=== PATIENT | male | born 1955 | race Caucasian/White ===

== ENCOUNTER 2025-05-18 20:12 | Inpatient (IN) | payer OTHER, BC, MEDICARE, SELFPAY ==
--- NOTE | ~2025-05-18 | XR_ITS ---
XR chest 1V portable 05/19/2025 05:25 Indication: Preop Procedure: AP portable chest Comparison: No prior studies for comparison. Findings: Heart size normal. There are bilateral interstitial infiltrates which may reflect mild edema, atypical pneumonia or chronic interstitial lung disease. Small left pleural effusion. No pneumothorax. There are degenerative changes of the left acromioclavicular joint. Impression: 1: Bilateral interstitial infiltrates. Differential diagnosis includes pulmonary edema, atypical pneumonia and chronic interstitial lung disease. Reviewed, dictated and finalized at location O. Impression: 1: Bilateral interstitial infiltrates. Differential diagnosis includes pulmonar y edema, atypical pneumonia and chronic interstitial lung disease.
--- NOTE | ~2025-05-18 | XR_ITS ---
XR hip LT 2V w AP pelvis 05/19/2025 11:00 Indication: Status post internal fixation of left femoral intertrochanteric fracture Procedure: 2 views left hip Comparison: 05/18/2025 Findings: Status post internal fixation of intertrochanteric fracture with dynamic compression screw and intramedullary obed. There is a single interlocking screw distally. Fracture fragments in anatomic alignment. Impression: 1: Anatomic alignment of left femoral intertrochanteric fracture status post internal fixation. Reviewed, dictated and finalized at location O. Impression: 1: Anatomic alignment of left femoral intertrochanteric fracture status post in ternal fixation.
--- NOTE | ~2025-05-18 | XR_ITS ---
XR hip LT 2V w AP pelvis 05/18/2025 20:43 Indication: Left hip pain after fall Procedure: AP pelvis and 2 views left hip Comparison: No prior studies for comparison. Findings: There is a left femoral intertrochanteric fracture without significant angulation. Pelvic rings intact. Sacral foramen are symmetric. Impression: 1: Left femoral intertrochanteric fracture. Reviewed, dictated and finalized at location O. Impression: 1: Left femoral intertrochanteric fracture.
--- NOTE | ~2025-05-18 | XR_ITS ---
XR fluoroscopy no charge Indication: Intraoperative fixation of left hip fracture TECHNIQUE: Fluoroscopy used during intraoperative fixation of left hip fracture. performed by [Flaco Guzman MD] on 05/19/2025. 1 minute for 80 seconds fluoroscopy with 4 fluoroscopic images captured. FINDINGS: Correlate with procedure note. IMPRESSION: Fluoroscopy used during intraoperative fixation of left hip fracture. Reviewed, dictated and finalized at location O. IMPRESSION: Fluoroscopy used during intraoperative fixation of left hip fractur e.
[2025-05-18 20:14] VITALS: BP 172/82; PULSE 81; RESP 18; TEMP 36.3; O2SAT 94
--- NOTE | 2025-05-18 20:46 | ED_ITS ---
HPI - Fall General Chief Complaint: Fall Stated Complaint: fall. hip pain Time Seen by Provider: 05/18/25 20:18 History of Present Illness HPI Narrative: Patient is a 69-year-old male who presents to the emergency department this evening status post a mechanical fall. 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 Patient did catch himself on his elbow, denies hitting his head and denies any loss of consciousness. Patient states that he is not in any pain when he is not moving but when he tries to move his left lower extremity at the hip joint the movement does elicit pain. No deformity or rotation noted to the left lower extremity. Admits that he is on a blood thinner present is unsure of which 1. States that it was Xarelto but it was recently changed to something else. Review of Systems 2 Review of Systems: All systems are reviewed and are negative unless stated otherwise in the HPI. Exam 2 Narrative: General: Alert, awake, afebrile, in no acute distress. HEENT: PERRL, no rhinorrhea, no post nasal drip, oropharynx clear. Neck: Trachea midline, no JVD, no lymphadenopathy. Cardiovascular: Regular rate and rhythm, no murmurs, rubs or gallops, no peripheral edema. Respiratory: Clear to auscultation bilaterally, no tachypnea, no wheezing, no rhonchi, no rubs, no respiratory distress. Abdomen: Soft, nontender, nondistended, no rebound, no guarding, no peritoneal signs. Musculoskeletal: No joint swelling or deformity, normal muscle tone, decreased range of motion at the left hip joint secondary to pain, no deformity or rotation noted to the left lower extremity. Skin: No rashes or petechia, no signs of infection. Psychiatric: Alert and oriented, normal behavior and judgment for situation. Neurological: Alert and oriented to person, place, and time. Follows all commands. No focal deficits, speech is clear and fluent. Course Vital Signs Vital signs: Vital Signs Temperature 97.3 F L 05/18/25 20:14 Pulse Rate 81 05/18/25 20:14 Respiratory Rate 18 05/18/25 20:14 Blood Pressure 172/82 H 05/18/25 20:14 Pulse Oximetry 94 05/18/25 20:14 Oxygen Delivery Room Air 05/18/25 20:14 Temperature 97.3 F L 05/18/25 20:14 Pulse Rate 81 05/18/25 20:14 Respiratory Rate 18 05/18/25 20:14 Blood Pressure 172/82 H 05/18/25 20:14 Pulse Oximetry 94 05/18/25 20:14 Oxygen Delivery Room Air 05/18/25 20:14 MDM - Fall MDM Narrative Medical decision making narrative: The patient was evaluated by myself in the emergency department. History is obtained from patient who is an independent historian and physical exam was performed. External medical records were reviewed at this time. IV was established and pertinent tests were ordered. Patient was administered 2 mg of IV morphine and 4 mg IV Zofran. EKG was obtained which revealed sinus rhythm rate of 82 beats per minute, evidence of acute ischemia. EKG was independently interpreted by me and is currently pending official cardiology read. Laboratory results obtained revealing a creatinine of 2.13, BUN of 27 otherwise unremarkable. No previous kidney function available for comparison. Imaging studies obtained included AP pelvis with left hip x-rays which was independently interpreted by me revealing a left IT hip fracture, which is pending final radiology interpretation. At this time patient was informed of these findings at bedside. Case was discussed with the on-call orthopedic surgeon Dr. Guzman at 2105 any agreed to evaluate the patient. Case was discussed with the on-call hospitalist JOHN Chilel who accepts admisison. Differential diagnosis considerations include fracture, dislocation, musculoskeletal strain. Comorbidities impacting this visit include none. I have evaluated and discussed social determinants of health with the patient that could potentially impact subsequent diagnosis and treatment plans. On repeat assessment of the patient, reevaluation revealed that the patient is doing well and is in no acute distress. Patient symptoms have improved since he arrived to our emergency department. Repeat vital signs were all reviewed and noted to be stable. Differential diagnosis and treatment plan were discussed with the patient at bedside. Patient agrees with discussion and after shared medical decision making agrees with admission. All questions were answered to the patient's satisfaction. Lab Data 05/18/25 21:13 05/18/25 21:13 Labs: Lab Results 05/18/25 Range/Units 21:13 WBC 6.5 (4.5-10.0) K/mm3 RBC 3.55 L (4.6-6.20) M/mm3 Hgb 11.7 L (14.0-18.0) g/dL Hct 34.4 L (42.0-52.0) % MCV 96.9 (80-100) fl MCH 33.0 (26-34) pg MCHC 34.0 (32-36) g/dl RDW 12.1 (11.5-14.5) % Plt Count 156 (150-375) k/mm3 MPV 9.1 (7.4-10.4) fl Immature Gran % (Auto) 0.6 H (0-0.5) % Neut % (Auto) 79.0 H (45.5-73.1) % Lymph % (Auto) 11.0 L (18.3-44.2) % [place] % (Auto) 7.4 (2.6-8.5) % Eos % (Auto) 1.7 (0-4.4) % Baso % (Auto) 0.3 (0.2-1.2) % Lymph # (Auto) 0.72 L (0.9-3.2) K/mm3 [place] # (Auto) 0.5 (0.1-0.6) K/mm3 Eos # (Auto) 0.1 (0-0.3) K/mm3 Baso # (Auto) 0.0 (0.0-0.1) K/mm3 Abs Immat Gran (auto) 0.04 H (0.00-0.031) K/mm3 Absolute Neuts (auto) 5.2 (1.3-6.7) K/mm3 Absolute Nucleated RBC 0.000 (0.0-0.012) K/mm3 Nucleated RBC % 0.0 (0.0-0.2) % Sodium 138 (137-145) mmol/L Potassium 4.4 (3.4-5.0) mmol/L Chloride 108 H (98-107) mmol/L Carbon Dioxide 22 (22-30) mmol/L Anion Gap 8 (4-12) mmol/L BUN 27 H (9-20) mg/dL Creatinine 2.13 H (0.7-1.3) mg/dL Estim Creat Clear Calc 33 ml/min Estimated GFR 31 L (59 - ) Glucose 108 (65-110) mg/dL Calcium 9.9 (8.4-10.2) mg/dL Magnesium 2.0 (1.6-2.3) mg/dL Total Bilirubin 0.6 (0.2-1.3) mg/dL AST 30 (17-59) U/L ALT 26 (6-50) U/L Alkaline Phosphatase 95 (38-126) U/L Total Protein 6.7 (6.3-8.2) g/dL Albumin 4.1 (3.5-5.1) g/dL Blood Type Pending Antibody Screen Pending Discharge Plan Discharge Clinical Impression: Fracture of hip, left, closed, Closed intertrochanteric fracture of left femur, Fall Patient Disposition: Still a Patient Condition: Stable Patient Language: Luxembour[place] Follow-up/Referrals: PHYSICIAN NOT ON STAFF,NONSTAFF [Primary Care Provider] Time of Disposition: 21:41
--- NOTE | 2025-05-18 21:00 | ECG_ITS ---
Test Date: 2025-05-18 21:12:31 Measurements Intervals [place] Rate: 82 P: 46 WI: 174 QRS: 31 QRSD: 98 T: 101 QT: 364 QTc: 426 Interpretive Statements SINUS RHYTHM INFERIOR INFARCT, AGE INDETERMINATE BORDERLINE ST ABNORMALITY- LAT/HIGH LAT LEADS BASELINE ARTIFACT- I, II, III AVR, AVL, AVF, V1-V6 ABNORMAL ECG No previous ECG available for comparison Electronically Signed On 05-19-2025 07:32:58 CDT by Keanu Zaidi D.O.
[2025-05-18] MEDS: ONDANSETRON INJ 4 MG/2 ML VIAL IV PUSH (21:04)
[2025-05-18] MEDS: MORPHINE SULFATE (*CRX) 2 MG/ML INJ IV PUSH (21:04)
[2025-05-18 21:20] LABS: Hematocrit 34.4 % (42.0-52.0); Hemoglobin 11.7 g/dL (14.0-18.0); Immature Granulocyte Percent A 0.6 % (0-0.5); Lymphocytes Absolute Auto 0.72 K/mm3 (0.9-3.2); Mean Corpuscular HGB Conc 34.0 g/dl (32-36); Mean Corpuscular Hemoglobin 33.0 pg (26-34); Mean Corpuscular Volume 96.9 fl (80-100); Nucleated Red Blood Cells Absolute Auto 0.000 K/mm3 (0.0-0.012); Nucleated Red Blood Cells Perc 0.0 % (0.0-0.2); Platelet Count Result 156 k/mm3 (150-375); Red Blood Count 3.55 M/mm3 (4.6-6.20); White Blood Count 6.5 K/mm3 (4.5-10.0)
[2025-05-18 21:31] LABS: Alanine Aminotransferase 26 U/L (6-50); Albumin Level 4.1 g/dL (3.5-5.1); Alkaline Phosphatase 95 U/L (38-126); Anion Gap 8 mmol/L (4-12); Aspartate Amino Transferase 30 U/L (17-59); Bilirubin,Total 0.6 mg/dL (0.2-1.3); Blood Urea Nitrogen 27 mg/dL (9-20); Calcium 9.9 mg/dL (8.4-10.2); Carbon Dioxide 22 mmol/L (22-30); Chloride 108 mmol/L (98-107); Estimated CRCL calculation 33 ml/min; Estimated Glomerular Filt Rate 31; Glucose 108 mg/dL (65-110); Magnesium 2.0 mg/dL (1.6-2.3); Potassium 4.4 mmol/L (3.4-5.0); Sodium 138 mmol/L (137-145); Total Protein 6.7 g/dL (6.3-8.2)
--- OUTSIDE RECORDS SUMMARY | 2025-05-18 21:35 | XMS_ITS | Clinical Summary ---
Author Organization [facility] Address [address] [place] [address] Care Team Providers Care Street Sweeper Name Role Phone Kandy Cho RN Unavailable Unavailable Shaji Brumfield MD Unavailable Shaji Brumfield MD Unavailable Tariq Vega MD Primary Care Provider [phone] Source Comments [facility],non-owned Affiliates and Associated Physician Practices is amultiple site organization consisting of ambulatory clinics and hospital sitesin [place], [place] and [place]. This disclosure is being madepursuant to the Care Everywhere program and may not contain all information available regarding this patient. Last updated 18.[facility] Allergies No known active allergies Medications * Be aware that medications may not be up to date on this document. Alwaysverify current medications with the patient. albuterol HFA (Proventil; Ventolin; Proair) 108 (90 Base) MCG/ACT inhaler Inhale 2 (two) puffs by mouth every 6 hours as needed 59.5 g 3 05/24/2024 Active multivitamin daily tablet Take 1 (one) tablet by mouth daily with food Active [place]-3 Fatty Acids (fish oil) 500 MG capsule Take 500 (five hundred) mg by mouth 2 times daily Active losartan (Cozaar) 100 MG tablet TAKE 1 TABLET BY MOUTH EVERY DAY 90 tablet 3 07/05/2024 Active Aspirin Low Dose 81 MG chew tablet TAKE 1 TABLET BY MOUTH EVERY DAY 90 tablet 3 07/17/2024 Active atorvastatin (Lipitor) 80 MG tablet TAKE 1 TABLET BY MOUTH EVERY DAY 90 tablet 3 10/01/2024 Active buPROPion SR 12hr (Wellbutrin-SR) 150 MG tabletIndication s:Personal history of nicotine dependence TAKE 1 (ONE) TABLET BY MOUTH 2 TIMES DAILY 180 tablet 3 12/27/2024 Active fluticasone-umec lidin-vilant (Trelegy Ellipta) 200-62.5-25 MCG/ACT inhalerIndicatio ns:Centrilobular emphysema (HCC) Inhale 1 (one) puff by mouth once daily 90 Each 4 12/28/2024 Active tadalafil (Cialis) 20 MG tabletIndication s:Erectile dysfunction, unspecified erectile dysfunction type TAKE 1/2 (ONE-HALF) TO 1 TABLET BY MOUTH ONCE DAILY NEEDED 6 tablet 4 02/04/2025 Active famotidine (Pepcid) 40 MG tabletIndication s:Gastroesophage al reflux disease without esophagitis TAKE 1 (ONE) TABLET BY MOUTH 2 TIMES DAILY 180 tablet 3 03/01/2025 Active carvedilol (Coreg) 25 MG tablet Take 1 (one) tablet by mouth 2 times daily with morning and evening meal 180 tablet 3 03/08/2025 Active rivaroxaban (Xarelto) 2.5 MG TABS tablet Take 1 (one) tablet by mouth 2 times daily 180 tablet 3 03/11/2025 Active Active Problems Problem Noted Date Diagnosed Date Stage 3b chronic kidney disease (CKD) 12/28/2024 Coronary artery disease of n ative artery of [place] heart with stable angina pectoris 06/26/2024 Essential hypertension 04/29/2023 HFrEF (heart failure with reduced ejection fract ion) 04/21/2023 Preop examination 11/18/2022 Mixed hyperlipidemia 10/12/2021 Pulmonary emphysema 05/26/2021 Assessment & Plan (05/27/2021 12:51 PM CDT): On home spiriva, albuterol PRN. On Wellbutrin for smoking cessation. States he quit smoking for the surgery, but unfortunately restarted again recently. - Continue spiriva, rescue inhaler as needed - Hold welbutrin for now Assessment & Plan (05/26/2021 5:35 PM CDT): On home spiriva, albuterol PRN. On Wellbutrin for smoking cessation. States he quit smoking for the surgery, but unfortunately restarted again recently. - Continue spiriva, rescue inhaler as needed - Hold welbutrin for now PAD (peripheral artery disease) 05/26/2021 Assessment & Plan (05/27/2021 12:51 PM CDT): PAD s/p illiac revascularization and stent placement -Hold statin, aspirin for now Assessment & Plan (05/26/2021 5:36 PM CDT): PAD s/p illiac revascularization and stent placement -Hold statin, aspirin for now Abdominal pain, right upper quadrant 05/25/2021 Assessment & Plan (05/27/2021 12:50 PM CDT): Patient is s/p partial cholecystectomy on 02/2021. Presented to the ED due to concern for right sided abdominal pain. TAUC CT A/P read with findings concerning for ruptured gallbladder, intraperitoneal free air. Differential broad including GERD, peptic ulcer disease, bile leak, recurrent acute cholecystitis. - Vitals q4h - NPO, D5 LR @125 mls/hr, zosyn, protonix - Surgery consulted - HIDA today, possible ERCP to follow Assessment & Plan (05/26/2021 5:33 PM CDT): Patient is s/p partial cholecystectomy on 02/2021. Presented to the ED due to concern for right sided abdominal pain. TAUC CT A/P read with findings concerning for ruptured gallbladder, intraperitoneal free air. Differential broad including GERD, peptic ulcer disease, bile leak, recurrent acute cholecystitis. - Vitals q4h - NPO, LR @125 mls/hr, zosyn, protonix - Surgery consulted - HIDA tomorrow AM, possible ERCP to follow S/P cholecystectomy 03/03/2021 Assessment & Plan (03/06/2021 11:13 AM CDT): -Followed by to Dr. 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 States when he is feeling well he can smoke around 3 packs a day. States currently he smokes 2-3 cigarettes a day. He states he was started on Wellbutrin to help him quit smoking and admits to compliance with the medication. Plan: -Hold nicotine patches due to surgery -Continue Wellbutrin Assessment & Plan (03/03/2021 11:01 PM CDT): Patient with a long history of tobacco use. States when he is feeling well he can smoke around 3 packs a day. States currently he smokes 2-3 cigarettes a day. He states he was started on Wellbutrin to help him quit smoking and admits to compliance with the medication. Plan: -Hold nicotine patches due to surgery -Continue Wellbutrin Stage 3a chronic kidney disease 10/20/2020 Low TSH level 11/28/2019 Gastroesophageal reflux disease without esophagi tis 03/12/2015 Bloating 07/18/2014 Bronchitis, chronic 07/19/2013 Resolved Problems Problem Noted Date Diagnosed Date Resolved Date Constipation 03/06/2021 04/03/2021 Assessment & Plan (03/06/2021 10:56 AM CDT): Pt s/p open cholecystectomy. Bowel sounds present. -continue miralax -continue senna-s -dulcolax suppository Sepsis 03/03/2021 03/05/2021 Assessment & Plan (03/03/2021 10:49 PM CDT): Patient meeting sepsis criteria in ED: tachycardic (111-113) with leukocytosis (WBC 14.4) and source of infection w/ signs of cholecystitis on CT scan. Lactic acid normal (1.9). Patient started on IV antibiotics and provided 1L bolus in ED. Plan: -Telemetry -LR @ 100mL/hr -Continue IV antibiotics (Cefepime and Flagyl) -F/u blood cultures -Dr. Lind planning for surgery in the AM to remove nidus of infection DIOMEDES (acute kidney injury) 03/03/2021 Assessment & Plan (03/03/2021 10:53 PM CDT): Patient w/ elevated creatinine on admission, (Cr 1.65). Baseline Creatinine 1.3- 1.4. Likely 2/2 to dehydration due to decreased PO intake and sepsis. Plan: -LR @ 100 mL/hr -Recheck creatinine in AM Encounters Date Type Department Care Team Description 05/07/2025 9:30 AM CDT Office Visit [facility] [address] [place] [phone] Jermain Iyer MD PAD (peripheral artery disease) (Primary Dx); HFrEF (heart failure with reduced ejection fraction) (HCC); Essential hypertension; Coronary artery disease of [place] artery of [place] heart with stable angina pectoris; Mixed hyperlipidemia 05/07/2025 Travel 03/08/2025 Refill [facility] [address] [place] [address] [address] [place] [address] Jermain Iyer MD MEDICATION REFILL 03/08/2025 Refill [facility] [address] [place] [address] Jermain Iyer MD MEDICATION REFILL 03/01/2025 Refill [facility] [address] [facility] [place] [place] [address] Tariq Vega MD Refill Request 02/22/2025 Refill [facility] [address] [place] [address] [address] [place] [address] Jermain Iyer MD Med Question from Last 3 Months Immunizations Immunization Administration Dates Next Due Covid Moderna primary monova lent 12+ yr 0.5mL 09/24/2021,01/26/2021,12/29/2020 INFLUENZA VACCINE 08/23/2018 INFLUENZA VACCINE, CELL CULT URE, QUADR. (FLUCELVAX QUADRIVALENT; 6MO+) (CCIIV4) 06/10/2021 INFLUENZA VACCINE, CELL CULT URE, QUADR. (FLUCELVAX QUADRIVALENT; 6MO+), 0.5 ML (CCIIV4) 07/05/2019 INFLUENZA VACCINE, HIGH-DOSE , QUADR. (FLUZONE HIGH-DOSE QUADRIVALENT; 65Y+), 0.7 ML (HD-IIV4) 07/08/2024 INFLUENZA VACCINE, HIGH-DOSE , TRIV. (FLUZONE HIGH-DOSE TRIVALENT; 65Y+) (HD-IIV3) 07/08/2024 INFLUENZA VACCINE, QUADR. (F LUZONE; FLULAVAL; FLUARIX; AFLURIA QUADRIVALENT; 6MO+), 0.5 ML (IIV4) 07/22/2022,08/23/2018,06/30/2016 INFLUENZA VACCINE, TRIV. (FL UZONE; FLULAVAL; FLUARIX; AFLURIA TRIVALENT; 6MO+), 0.5 ML (IIV3) 12/25/2014 MODERNA SARS-COV-2 COVID-19 VACCINE 0.25ML 05/12 PNEUMOCOCCAL PCV20 CONJ VAC IM 10/13/2022 PNEUMOCOCCAL PPSV23 12/25/2014 TDAP (7yrs+) 10/16/2020 Zoster Hzv Vacc Recombinant Inj Im 02/26/2021, iNFLUENZA VACCINE, RECOM-AARON, QUADR. (FLUBLOCK QUADRIVALENT; 18Y+) (RIV4) 07/12/2020 Family History Medical History Relation Name Comments Hyperlipidemia Brother Cancer Mother breast, colon Hyperlipidemia Sister 1 Hyperlipidemia Sister 2 Hyperlipidemia Sister 3 Relation Name Status Comments Brother Alive Father Mother Sister 1 Alive Sister 2 Alive Sister 3 Alive Social History Tobacco Use Types Packs/Day Years Used Date Smoking Tobacco: Former Cigarettes 3 47 1 09/26/1975 - 07/27/2023 Smokeless Tobacco: Never Tobacco Cessation:Counseling Given: Not Answered Comments:Now 1.5 packs per day 10/16/20 LUNG SCREENING CSD DOCUMENTATION Alcohol Use Standard Drinks/Week Comments Not Currently 0 (1 standard drink = 0.6 oz pur e alcohol) No alcohol in over a year PHQ-2 Answer Date Recorded Patient Health Questionnaire-2 Score 0 12/28/2024 Sex and Gender Information Value Date Recorded Sex Assigned at Not on file Legal Sex 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 Gender Identity Not on file Sexual Orientation Not on file Last Filed Vital Signs Vital Sign Reading Time Taken Comments Blood Pressure 138/74 05/07/2025 9:07 AM CDT Pulse 74 05/07/2025 9:07 AM CDT Temperature 37 C (98.6 F) 05/07/2025 9:07 AM CDT Respiratory Rate 17 07/02/2024 3:26 PM CDT Oxygen Saturation 98% 12/28/2024 10:44 AM CDT Inhaled Oxygen Concentration 21% 05/27/2021 1 2:07 PM CDT Weight 84.8 kg (187 lb) 05/07/2025 9:07 AM CDT Height 177.8 cm (5' 10) 12/28/2024 10:44 AM CDT Body Mass Index 26.83 12/28/2024 10:44 AM CDT Plan of Treatment Upcoming Encounters Date Type Department Care Team (Late st Contact Info) Description 07/23/2025 9:40 AM CDT Office Visit [facility] [address] [facility] [place] [address] Tariq Vega MD [address] [facility] [place] [id number] 11/12/2025 9:30 AM 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 Office Visit [facility] [address] [place] [address] [address] [place] [address] Jermain Iyer MD [address] [place] [phone] Health Maintenance Due Date Last Done Comments COLOGUARD (AGES 45-75) - COLON CA SCREENING 1955 CT COLONOGRAPHY - COLON CA SCREENING 1955 FIT - COLON CA SCREENING 1955 FLEX SIG - COLON CA SCREENING 1955 Respiratory Syncytial Virus (RSV) Vaccine Pt: or over 60 yrs (1 - Risk 60-74 years 1-dose series) 2017 COVID-19 VACCINE ( season) 2024 05/12/2022, 09/24/2021, 01/26/2021, Additional history exists INFLUENZA VACCINE (#1) 2025 , 07/08/2024, 07/22/2022, Additional history exists LUNG CANCER SCREENING 01/14/2026 01/14/2025 , 11/16/2023, 10/28/2022, Additional history exists COLON MONITORING 07/02/2027 07/02/2024, 03/2024, 07/02/2024, Additional history exists Colorectal Cancer Screening 07/02/2027 SCREENING FOR DIABETES 01/19/2028 , 05/24/2024, 11/24/2023, Additional history exists DTAP/TDAP/TD VACCINES (2 - Td or Tdap) 10/16/2030 10/16/2020 COLONOSCOPY - COLON CA SCREENING 07/02/2034 07/02/2024, 07/02/2024, 07/02/2024, Additional history exists HEPATITIS C SCREENING Completed 10/16/2020 ZOSTER VACCINE Completed 02/26/2021, 12/03/2020 AAA SCREENING Completed 10/27/2021 PNEUMOCOCCAL VACCINE 50+ Completed 10/13/2022, 04/0 09/2014 DEPRESSION SCREENING Completed 12/28/2024, 11/02/2023, 10/13/2022, Additional history exists HEPATITIS B VACCINE Aged Out No longe r eligible based on patient's age to complete this topic HIB VACCINE Aged Out No longer eligi ble based on patient's age to complete this topic HPV VACCINE Aged Out No longer eligi ble based on patient's age to complete this topic MENINGOCOCCAL (Group B) VACCINE SHARED DECISION-MAKING Aged Out No longer eligible based on patient's age to complete this topic MENINGOCOCCAL GROUPS A/C/Y/W VACCINE Aged Out No longer eligible based on patient's age to complete this topic Goals Goal Patient Goal Type Associated Problems Recent Progress Patient-Stated? Author Quit smoking / using tobacco Lifestyle Not on track(06/30/20 8:18 AM CDT) Irlanda García MA Medical Devices Implanted Type Area Province Archivist Device Identifier Shelf Expiration Date Model / Serial / Lot Grfer Vasc Str Std Eptfe Ring 6mm X 45cm Implanted:Qty: 1 on 12/23/2014 by Lali Diaz MD at [facility] [employer] 06/25/2019 [id number] / / [id number] Protege Gps Stent Implanted:Qty: 1 on 12/23/2014 by Lali Diaz MD at [facility] 09/10/2016 [id number] / / Procedures Procedure Name Priority Date/Time Associated Diagnosis Comments COMPREHENSIVE METABOLIC PANEL Routine 01/18/2025 10:45 AM CDT Essential hypertension CT LUNG SCREEN LOW DOSE Routine 01/14/2025 8:02 AM CDT Tobacco use disorder, severe, in sustained remission Personal history of nicotine dependence ENDOSCOPY, COLON, SCREENING Routine 07/02/2024 2:19 PM CDT Screening for colon cancer VAS AAA SCREENING Routine 10/27/2021 9:0 6 AM 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 PAD (peripheral artery disease) HEPATITIS C ANTIBODY W RFLX PCR Routine 10/16/2020 2:58 PM 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 Encounter for hepatitis C screening test for low risk patient from Last 3 Months or Most Recently Relevant to Health Maintenance Results * (ABNORMAL) COMPREHENSIVE METABOLIC PANEL (01/18/2025 10:45 AM CDT) Glucose 94 70 - 99 mg/dL [facility] INSURANCE BILL BUN 23 7 - 26 mg/dL [facility] INSURANCE BILL Creatinine 1.85(H) 0.72 - 1.25 mg/dL [facility] INSURANCE BILL eGFR by CKD-EPI 39(L) >=90 mL/min/1.7 3 m2 [facility] INSURANCE BILL Sodium 139 136 - 145 mmol/L [facility] INSURANCE BILL Potassium 5.0 3.5 - 5.1 mmol/L [facility] INSURANCE BILL Chloride 110(H) 98 - 107 mmol/L [facility] INSURANCE BILL CO2 22 22 - 29 mmol/L [facility] INSURANCE BILL Calcium 9.2 8.4 - 10.4 mg/dL [facility] INSURANCE BILL Protein Total 6.5 6.4 - 8.3 gm/dL [facility] INSURANCE BILL Albumin 4.0 3.4 - 5.0 gm/dL [facility] INSURANCE BILL Bilirubin Total 0.7 0.2 - 1.2 mg/dL [facility] INSURANCE BILL Alkaline Phosphatase 106 40 - 150 U/L [facility] INSURANCE BILL AST 26 10 - 48 U/L [facility] INSURANCE BILL ALT 39 6 - 57 U/L [facility] INSURANCE BILL Blood BLOOD SPECIMEN / Unknown 01/18/2025 10:45 AM CDT 01/18/2025 Narrative [facility] INSURANCE BILL - 01/18/2025 5:10 PM CDT Performed at: [address] [place] [id number] Tube Test Technician: Aba Rausch Dr, Phone: [phone] us Tariq Vega MD LAB - CHEMISTRY ORDERABLES Fin al Result [facility] INSURANCE BILL [address] [place] [address] * CT Lung Screen Low Dose (01/14/2025 8:02 AM CDT) Anatomical Region Laterality Modality Chest Computed Tomogra phy 01/14/2025 11:3 6 AM CDT Narrative 01/14/2025 11:42 AM CDT PROCEDURE: CT LUNG SCREEN LOW DOSE DATE/TIME OF EXAM: 01/14/2025 8:05 AM CLINICAL INFORMATION: None relevant/not provided if blank. Indication: F17.201: Nicotine dependence, unspecified, in remission Z87.891: Personal history of nicotine dependence Additional History: COMPARISON: Most recently 11/16/2023 TECHNIQUE: CT of the chest was performed without intravenous contrast utilizing low dose protocol. CT dose reduction technique was used, including Automated Exposure Control. FINDINGS: LUNGS: Symmetric biapical scarring. Mild to moderate centrilobular emphysema. Atelectasis in the lung bases most pronounced dependently which limits evaluation of the involved areas. No new or increasing suspicious nodules. HEART/OTHER VESSELS: Thoracic aorta is moderately atherosclerotic but normal in caliber. Qualitatively severe coronary atherosclerotic calcification. MEDIASTINUM/CHRISTIN: No enlarged lymph nodes. CHEST WALL/LOWER NECK: Indeterminate hypoattenuating 11 mm left thyroid nodule. Unchanged cortical thickening and coarsened trabecula with mild expansion of the right posterior seventh rib, suspicious for Paget's disease. UPPER ABDOMEN: Gallbladder is surgically absent. Probable small left renal cysts. Proximal duodenal diverticulum. ASSESSMENT: Lung-RADS 1: Negative. No nodules or definitely benign nodules noted. Possible Paget's disease involving the posterior right seventh rib. RECOMMENDATION: Follow up LDCT in 1 year. ACR Lung-RADS Category/Recommendations: 0: Need prior comparisons or additional images 1: Negative: 12 month follow up LDCT (Low Dose CT) 2: Benign Appearin month follow up LDCT 3: Probably Benign: 6 month follow up LDCT 4A: Suspicious: 3 month follow up LDCT (or immediate PET if >7mm solid component) 4B: Suspicious: Immediate Chest CT or PET if >7mm solid component 4X: Cat 3 or 4A nodules with additional suspicious findings Modifier-S: Significant NON-lung cancer findings Modifier-C: Prior treated Lung Cancer. For details of the ACR Lung-RADS program, categories and recommendations: 1) https://www.acr.org/Quality-Safety/Resources/LungRADS 2) Internet search: Lung-RADS Lung Cancer Screening 3) Contact [facility] thoracic nurse coordinator ([phone]) > Interpreting Provider: Hira Navarro MD on 01/14/2025 11:42 AM Procedure Note Hira Navarro MD - 01/14/2025 PROCEDURE: CT LUNG SCREEN LOW DOSE DATE/TIME OF EXAM: 01/14/2025 8:05 AM CLINICAL INFORMATION: None relevant/not provided if blank. Indication: F17.201: Nicotine dependence, unspecified, in remission Z87.891: Personal history of nicotine dependence Additional History: COMPARISON: Most recently 11/16/2023 TECHNIQUE: CT of the chest was performed without intravenous contrast utilizing low dose protocol. CT dose reduction technique was used, including Automated ExposureControl. FINDINGS: LUNGS: Symmetric biapical scarring. Mild to moderate centrilobular emphysema. Atelectasis in the lung bases most pronounced dependentlywhich limits evaluation of the involved areas. No new or increasing suspicious nodules. HEART/OTHER VESSELS: Thoracic aorta is moderately atherosclerotic but normal in caliber. Qualitatively severe coronary atherosclerotic calcification. MEDIASTINUM/CHRISTIN: No enlarged lymph nodes. CHEST WALL/LOWER NECK: Indeterminate hypoattenuating 11 mm left thyroid nodule. Unchanged cortical thickening and coarsened trabecula with mild expansion of the right posterior seventh rib, suspicious for Paget's disease. UPPER ABDOMEN: Gallbladder is surgically absent. Probable small leftrenal cysts. Proximal duodenal diverticulum. ASSESSMENT: Lung-RADS 1: Negative. No nodules or definitely benign nodules noted. Possible Paget's disease involving the posterior right seventh rib. RECOMMENDATION: Follow up LDCT in 1 year. ACR Lung-RADS Category/Recommendations: 0: Need prior comparisons or additional images 1: Negative: 12 month follow up LDCT (Low Dose CT) 2: Benign Appearin month follow up LDCT 3: Probably Benign: 6 month follow up LDCT 4A: Suspicious: 3 month follow up LDCT (or immediate PET if >7mm solid component) 4B: Suspicious: Immediate Chest CT or PET if >7mm solid component 4X: Cat 3 or 4A nodules with additional suspicious findings Modifier-S: Significant NON-lung cancer findings Modifier-C: Prior treated Lung Cancer. For details of the ACR Lung-RADS program, categories andrecommendations: 1) https://www.acr.org/Quality-Safety/Resources/LungRADS 2) Internet search: Lung-RADS Lung Cancer Screening 3) Contact [facility] thoracic nurse coordinator ([phone]) > Interpreting Provider: Hira Navarro MD on 01/14/2025 11:42 AM Tariq Vega MD CT ORDERABLES Final Result * Endoscopy, Colon, Screening (07/02/2024 2:19 PM CDT) Report Endoscopy POC _ Patient Name: Leighton Yates Procedure Date: 07/02/2024 2:19 PM Date of : 1955 Admit Type: Outpatient Age: 68 Gender: Male Ethnicity: Not or Race: White Attending MD: Oswaldo Jain MD, [id number] _ Procedure: Colonoscopy Indications: Screening for colorectal malignant neoplasm Providers: Oswaldo Jain MD (Doctor), Katherin Barragan RN, Tori Garcia, Local Driver Referring MD: Tariq Vega MD (Referring MD) Medicines: Monitored Anesthesia Care Complications: No immediate complications. _ Estimated Blood Loss: Estimated blood loss: none. Procedure: Pre-Anesthesia Assessment: - Prior to the procedure, a History and Physical was performed, and patient medications and allergies were reviewed. The patient's tolerance of previous anesthesia was also reviewed. The risks and benefits of the procedure and the sedation options and risks were discussed with the patient. All questions were answered, and informed consent was obtained. Prior Anticoagulants: The patient has taken no anticoagulant or antiplatelet agents. ASA Grade Assessment: II - A patient with mild systemic disease. After reviewing the risks and benefits, the patient was deemed in satisfactory condition to undergo the procedure. After I obtained informed consent, the scope was passed under direct vision. Throughout the procedure, the patient's blood pressure, pulse, and oxygen saturations were monitored continuously. The Colonoscope was introduced through the anus and advanced to the cecum, identified by appendiceal orifice and ileocecal valve. The colonoscopy was performed without difficulty. The patient tolerated the procedure well. The quality of the bowel preparation was fair. The ileocecal valve, appendiceal orifice, and rectum were photographed. Impression: - Preparation of the colon was fair. - Eight 1 to 3 mm polyps at the recto-sigmoid colon, removed with a jumbo cold forceps. Resected and retrieved. - One 8 mm polyp in the ascending colon, removed with a hot snare. Resected and retrieved. - One 4 mm polyp in the transverse colon, removed with a jumbo cold forceps. Resected and retrieved. - Diverticulosis. Moderate Sedation: Moderate (conscious) sedation was administered by the nurse and supervised by the endoscopist. The following parameters were monitored: oxygen saturation, heart rate, blood pressure, and response to care. Findings: Eight sessile polyps were found in the recto-sigmoid colon. The polyps were 1 to 3 mm in size. These polyps were removed with a jumbo cold forceps. Resection and retrieval were complete. Estimated blood loss: none. An 8 mm polyp was found in the ascending colon. The polyp was sessile. The polyp was removed with a hot snare. Resection and retrieval were complete. Estimated blood loss: none. A 4 mm polyp was found in the transverse colon. The polyp was sessile. The polyp was removed with a jumbo cold forceps. Resection and retrieval were complete. Estimated blood loss: none. Diverticula were found in the colon. _ Recommendation: - Written discharge instructions were provided to the patient. - The signs and symptoms of potential delayed complications were discussed with the patient. - Patient has a contact number available for emergencies. - Return to normal activities tomorrow. - Resume Xarelto (rivaroxaban) at prior dose in 3 days. - Repeat colonoscopy in 3 years for surveillance based on pathology results. Procedure Code(s): --- Professional --- 54301, Colonoscopy, flexible; with removal of tumor(s), polyp(s), or other lesion(s) by snare technique [id number], 59, Colonoscopy, flexible; with biopsy, single or multiple --- Technical --- 74100, Colonoscopy, flexible; with removal of tumor(s), polyp(s), or other lesion(s) by snare technique [id number], 59, Colonoscopy, flexible; with biopsy, single or multiple Diagnosis Code(s): --- Professional --- Z12.11, Encounter for screening for malignant neoplasm of colon D12.7, Benign neoplasm of rectosigmoid junction D12.2, Benign neoplasm of ascending colon D12.3, Benign neoplasm of transverse colon (hepatic flexure or splenic flexure) K57.30, Diverticulosis of large intestine without perforation or abscess without bleeding --- Technical --- Z12.11, Encounter for screening for malignant neoplasm of colon D12.7, Benign neoplasm of rectosigmoid junction D12.2, Benign neoplasm of ascending colon D12.3, Benign neoplasm of transverse colon (hepatic flexure or splenic flexure) K57.30, Diverticulosis of large intestine without perforation or abscess without bleeding CPT copyright 2020 [employer]. All rights reserved. The codes documented in this report are preliminary and upon table hand review may be revised to meet current compliance requirements. Oswaldo Jain MD 07/02/2024 3:11:49 PM This report has been signed electronically. Number of Addenda: 0 Note Initiated On: 07/02/2024 2:19 PM [facility] 07/02/2024 2:19 PM CDT us Oswaldo Jain MD GI PROCEDURE ORDERABLES Edited R esult - Final [facility] * VAS AAA SCREENING (10/27/2021 9:06 AM 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) Anatomical Region Laterality Modality Abdomen Ultrasound 10/27/2021 9:40 AM 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 Narrative Procedure Note Jovani Morin MD - 10/27/2021 [place] [id number] Abdominal Aorta-Iliac Report Pat.Name: LEIGHTON YATES JRItzel Pat.ID: [id number] .Date: 10/27/2021 Refer.MD: Shaji Brumfield Exam Time: 9:40:00 AM Study Type:Abd. Aorta-Iliac Age: 12 1955,66Y Sex: MALE Sonogrphr: Jo Elaine RVT Pat. Stat.:Outpatient ICD - 9: i73.9 CPT - 4: 63705 Reason for Study: AAA Screening History / Clinical: Hyperlipidemia, Peripheral vascular disease, Smoking - current, Left iliac atrery stent, Left fem pop bypass Procedures: AAA Screening Race: 1 Visit ID: [id number] ++++++++++++++++++++++++++++++++++++ SUMMARY: ++++++++++++++++++++++++++++++++++++ No abdominal aortic aneurysm noted. ++++++++++++++++++++++++++++++++++++ FINDINGS: ++++++++++++++++++++++++++++++++++++ Procedure: Abdominal aorta and iliac arteries were examined with duplex and color flow imaging as well as spectral Doppler analysis. Study Quality: This study is of adequate technical quality. AO: There is no abdominal Aortic aneurysm visualized. The abdominal aorta measures 2 x 2.1 cm in the proximal segment of the Aorta. The abdominal aorta measures 1.6 x 1.6 cm in the mid segment of the Aorta. The abdominal aorta measures 1.6x 1.7 cm in the distal segment of the Aorta. Rt Iliac: The right iliac is well visualized and measures normal cm in transverse diameter. Maximum velocity in the iliac is 132 cm/sec. Lt Iliac: The left iliac is well visualized and measures normal cm in transverse diameter. Maximum velocity in the iliac is 136 cm/sec. Comments: athrosclerosis seen in distal aorta and right and left illiac Signed 10/27/2021 03:32 PM Jovani Sweeney MD us Shaji Devries MD VASCULAR LAB ORD ERABLES Edited * HEPATITIS C ANTIBODY W RFLX PCR (10/16/2020 2:58 PM 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) Hepatitis C Antibody <0.1 0.0 - 0.9 s/co ratio [facility] ACCOUNT BILL Blood BLOOD SPECIMEN / Unknown 10/16/2020 2:58 PM 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 10/16/2020 Narrative Resulting Agency Comment Lab Testing performed at: [facility] [address] [facility] [id number] us Tariq Vega MD LAB - CHEMISTRY ORDERABLES Fin al Result [facility] ACCOUNT BILL [address] [place] [address] from Last 3 Months or Most Recently Relevant to Health Maintenance Insurance MEDICARE [facility] Advance Directives * Full Code (Latest Code Status on File) Date Activated Date Inactivated Comments 05/25/2021 11:33 PM 05/27/2021 5:57 PM * Full Code Date Activated Date Inactivated Comments 03/03/2021 10:43 PM 03/07/2021 3:42 PM * Full Code Date Activated Date Inactivated Comments 12/23/2014 11:04 AM 12/25/2014 2:01 PM * Full Code Date Activated Date Inactivated Comments 12/02/2014 8:35 AM 12/02/2014 4:[address] Sweeper Relationship Specialty Start Date End Date Tariq Vega MD [address] [facility] [place] [id number] PCP - General Family Medicine 11/19/22 Kandy Cho, carbonation tester 12/23/14 Shaji Brumfield MD Vehicle Controls Engineer Cardiology 10/22/21 Shaji Brumfield MD Vehicle Controls Engineer Cardiology 10/22/21
--- NOTE | 2025-05-18 21:41 | P.HP_ITS ---
H&P: HPI History of Present Illness Date/Time: 05/18/25 21:41 Chief Complaint: Left hip pain Narrative: This is a very pleasant 69-year-old male patient with cardiac history although patient is a very poor historian of his own health. States he is followed by Dr. Lewis a professional builder. He provides me with a picture of medications that he takes including Xarelto (apparently patient does not take this exact blood thinner anymore and states he takes a different 1. ) Aspirin, omeprazole, carvedilol, Wellbutrin, losartan but patient cannot tell me why he takes any blood thinner or any of his medications as he states his blood pressure is often low and not high despite the prescribing of 2 blood pressure medications. Patient denies having any cardiac stents and has never been told he has been in atrial fibrillation. He denies any known history of DVT or PE. He states he has been told, ?there is a narrow vein on the front of my heart.Today at work patient was standing on a Pallet and slipped and fell landing onto the left hip. It was a fall of about 2 ft height. Patient denies any head injury or loss of consciousness and no neck injury. His only complaints of pain is in the left hip. At rest pain is more tolerable, however any movement exacerbates the pain. He was brought to the emergency room for evaluation and workup was performed. We do not have any previous laboratory or imaging/cardiovascular data on file for this patient so there are no comparisons. Labs that were performed shows mild anemia with hemoglobin of 11.7 and hematocrit of 34.4. Otherwise no leukocytosis and preserved platelets of 156. Metabolic panel significant findings of BUN of 27 and creatinine of 2.13. Type and screen is pending. Vital signs showing a marginally elevated blood pressure at 172/82, suspect pain response. Left hip imaging shows a left from oral inter trochanter fracture without angulation. ER physician spoke with Orthopedic surgery on-call, Dr. Guzman, and patient will be admitted to the hospital tonight, kept NPO, pain medications administered and will be prepared for OR tomorrow. Review of Systems Review of Systems: All systems reviewed & are unremarkable except as noted in HPI and below PMFSH Past Medical History Medical History (Updated 05/18/25 @ 21:50 by NAT Hung) Renal failure Cardiovascular disease Social History Social History (Updated 05/18/25 @ 21:47 by NAT Hung) Smoking status: Never smoker Alcohol intake: never Substance use: never Do You Feel Safe in your Home?: Yes Lack of Transportation: No Lack of Food: Never True Current Housing: I Have Housing Concerned About Future Housing: No Difficulty Paying Gas/Electric Bills: No Difficulty Paying for Meds: No Currently Unemployed: No Meds Home Medications and Allergies Allergies Allergy/AdvReac Type Severity Reaction Status Date / Time No Known Drug Allergies Allergy Other Verified 05/18/25 21:52 Vital Signs Vital Signs - 24 hr 05/18/25 20:14 Temperature 97.3 F L Pulse Rate 81 Respiratory Rate 18 Blood Pressure 172/82 H Pulse Oximetry 94 Oxygen Delivery Room Air Exam Const: General: no acute distress and uncomfortable Other: Male patient lying supine on stretcher at this time, appearing uncomfortable with any movements. HENMT: Face/Nose/Sinus: Normal nares present Mouth: Yes moist mucous membranes Eyes: General: appearance normal, both eyes and all related structures Sclera: sclerae normal EOM: EOMs intact bilaterally Neck: Neck: supple and no JVD Lymphatic: lymphadenopathy not noted Chest: Other: Nontender Resp: Effort & Inspection: normal respiratory effort Auscultation: clear to auscultation bilaterally Cardio: Rate: regular rate Rhythm: regular rhythm Heart sounds: no gallops, no murmurs and no rubs GI: GI Palp: Yes Soft to palpation and No Tenderness to palpation present (GI) Auscultation: normal bowel sounds Back/Spine/Pelvis: Pelvis: Other pelvic findings (Tenderness over the left greater trochanter. No crepitus.) Skin: General skin exam: normal color Lesions: no lesions noted Rashes: no rashes noted Wounds: no wounds Neuro: Speech: normal speech Motor exam (neuro): Abnormal motor strength present (Left hip secondary to pain) Sensory Exam: normal sensation Extrem: Other: Left hip tenderness to palpation. Decreased active range of motion. Psych: Mental Status: mental status grossly normal Affect: normal affect Other: Poor historian of health H&P: Results Labs Labs: Short CBC 05/18/25 Range/Units 21:13 WBC 6.5 (4.5-10.0) K/mm3 Hgb 11.7 L (14.0-18.0) g/dL Hct 34.4 L (42.0-52.0) % Plt Count 156 (150-375) k/mm3 BMP 05/18/25 21:13 Sodium 138 Potassium 4.4 Chloride 108 H Carbon Dioxide 22 BUN 27 H Creatinine 2.13 H Glucose 108 Calcium 9.9 Liver Function 05/18/25 Range/Units 21:13 Total Bilirubin 0.6 (0.2-1.3) mg/dL AST 30 (17-59) U/L ALT 26 (6-50) U/L Alkaline Phosphatase 95 (38-126) U/L Albumin 4.1 (3.5-5.1) g/dL Assessment and Plan Assessment and plan (1) Fall: Code(s): W19.XXXA - Unspecified fall, initial encounter Status: Acute Assessment and Plan: * Sustained fall off of pallets at work * Fall precautions * Bedrest (2) Closed intertrochanteric fracture of left femur: Code(s): S72.142A - Displaced intertrochanteric fracture of left femur, initial encounter for closed fracture Status: Acute Assessment and Plan: * Bedrest * Louise catheter placed to gravity * Fall precautions * Consult orthopedics * Pain control with Dilaudid 1 mg IV push q.3 hours p.r.n. severe pain * Zofran 4 mg IV push p.r.n. nausea q.4 hours * Type and screen pending (3) Cardiovascular disease: Code(s): I25.10 - Atherosclerotic heart disease of [place] coronary artery without angina pectoris Status: Chronic Assessment and Plan: * Unknown extent of cardiovascular disease as patient is a poor historian of his own history. * EKG showing normal sinus rhythm 82 beats per minute * Will obtain echo as it is noted patient is on anticoagulants but is uncertain as to why as well as carvedilol, aspirin and losartan * Monitor and trend labs and vital signs * Will provide a p.r.n. hydralazine order for any hypertension with systolic greater than 180 and diastolic greater than 90. (4) Renal failure: Code(s): N19 - Unspecified kidney failure Status: Acute Assessment and Plan: * Uncertain if acute on chronic as we have no comparison data in EMR. * Creatinine and BUN noted to be 2.13 and 27. * Will hydrate patient with normal saline at 100 mL/hour. * Continue to trend renal function with daily labs * Louise catheter placed in the setting of acute fracture and decreased Mobility. Plan Full code NPO at midnight Weight orthopedic consult SCDs Quality VTE Prophylaxis VTE prophylaxis: mechanical ordered Hospitalist MIPS Advance Care Plan I have confirmed that the patient's Advanced Care Plan is present, code status is documented, or surrogate decision maker is listed in patient medical record.: Yes Medication Reconciliation I have utilized all available resources to obtain, update and review the patients current medications (includes all prescriptions, OTC, herbals, cannabis, and nutritional supplements).: Yes
[2025-05-18] MEDS: SODIUM CHLORIDE 0.9% IV 1,000 ML 100 ML IV CONT ×2 (21:55→22:30)
[2025-05-18 21:58] VITALS: BP 157/67; PULSE 79; RESP 18; O2SAT 95
[2025-05-18 22:13] VITALS: BP 157/79; PULSE 77; RESP 18; TEMP 36.7; O2SAT 95
[2025-05-18] MEDS: HYDROmorphone HCL INJ (*CRX) 1 MG/ML SYR IV PUSH (22:28)
[2025-05-18 22:33] VITALS: BMI 27.5
[2025-05-18 22:40] VITALS: BP 179/78; PULSE 77; RESP 20; TEMP 36.7; O2SAT 96
[2025-05-19] VITALS (14 sets, daily range): BP systolic 112–171; BP diastolic 60–80; PULSE 63–86; RESP 12–20; TEMP 35.9–36.9; O2SAT 91–99
[2025-05-19] MEDS: HYDROmorphone HCL INJ (*CRX) 1 MG/ML SYR IV PUSH ×2 (05:06→11:50)
[2025-05-19 05:58] LABS: Hematocrit 33.5 % (42.0-52.0); Hemoglobin 11.0 g/dL (14.0-18.0); Immature Granulocyte Percent A 0.5 % (0-0.5); Lymphocytes Absolute Auto 1.06 K/mm3 (0.9-3.2); Mean Corpuscular HGB Conc 32.8 g/dl (32-36); Mean Corpuscular Hemoglobin 32.4 pg (26-34); Mean Corpuscular Volume 98.8 fl (80-100); Nucleated Red Blood Cells Absolute Auto 0.000 K/mm3 (0.0-0.012); Nucleated Red Blood Cells Perc 0.0 % (0.0-0.2); Platelet Count Result 143 k/mm3 (150-375); Red Blood Count 3.39 M/mm3 (4.6-6.20); White Blood Count 6.5 K/mm3 (4.5-10.0)
[2025-05-19 06:09] LABS: INR 1.2; Prothrombin Time 15.4 Seconds (11.1-14.7)
[2025-05-19 06:10] LABS: Partial Thromboplastin Time 38.1 Seconds (22.3-36.8)
[2025-05-19 06:19] LABS: Alanine Aminotransferase 23 U/L (6-50); Albumin Level 3.8 g/dL (3.5-5.1); Alkaline Phosphatase 87 U/L (38-126); Anion Gap 6 mmol/L (4-12); Aspartate Amino Transferase 26 U/L (17-59); Bilirubin,Total 0.7 mg/dL (0.2-1.3); Blood Urea Nitrogen 26 mg/dL (9-20); Calcium 9.1 mg/dL (8.4-10.2); Carbon Dioxide 19 mmol/L (22-30); Chloride 110 mmol/L (98-107); Estimated CRCL calculation 36 ml/min; Estimated Glomerular Filt Rate 37; Glucose 106 mg/dL (65-110); Magnesium 2.0 mg/dL (1.6-2.3); Potassium 4.6 mmol/L (3.4-5.0); Sodium 135 mmol/L (137-145); Total Protein 6.2 g/dL (6.3-8.2)
[2025-05-19] MEDS: ceFAZolin 2 GM in SODIUM CHLORIDE 0.9% IV 50 ML 100 ML IVPB (07:27)
--- NOTE | 2025-05-19 07:46 | PM.CNOR ---
Assessment and Plan Assessment and plan (1) Closed intertrochanteric fracture of left femur: Code(s): S72.142A - Displaced intertrochanteric fracture of left femur, initial encounter for closed fracture Status: Acute Plan Patient is a 69-year-old male - working at a [employer]) and - fell off of Pallet about 2ft to 4ft high - was adjusting airbags between pallet - lost his balance, landed on Left Hip and elbow - no head trauma, no loc - unable to bear weight on Left LE after fall Reviewed the patient's x-rays show that he has a displaced and unstable left hip intertrochanteric fracture. My recommendation is for left hip intertrochanteric fracture intramedullary obed fixation with closed reduction. I discussed the treatment plan with the patient and he understands the risks alternatives and complications of this procedure. He understands that fixation is necessary in order for him to be able to sit up or ambulate. The risks of surgery include but are not limited to infection nerve and blood vessel injury DVT nonunion malunion requiring additional surgery and agrees to proceed. The patient apparently is taking a blood thinner that he states is similar to Xarelto but he was on Xarelto previously in his physician changed him over to a another type of blood thinner similar to Xarelto. 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 He lives in [facility] with his brother and his girlfriend apparently who has severe dementia. He states that he has 7 steps to get into his home and everything is on the 1st level. He will be in the hospital for at least 2 days for physical therapy. Given the type of work that he does anticipate that he will not be able to return to work for 6 weeks. He has been working for [employer] in this capacity for approximately 14 years. The patient reports the knee has not had any episodes of previous falls and he isn't prone to frequent falls. History of Present Illness HPI Consult date: 05/19/25 Chief complaint: L IT hip fx Narrative: Patient is a 69-year-old male - working at a [employer]) and - fell off of Pallet about 2ft to 4ft high - was adjusting airbags between pallet - lost his balance, landed on Left Hip and elbow - no head trauma, no loc - unable to bear weight on Left LE after fall PMFSH Past Medical History Medical History (Updated 05/18/25 @ 21:50 by NAT Hung) Renal failure Cardiovascular disease Social History Social History (Updated 05/18/25 @ 21:47 by NAT Hung) Smoking packs per day: 3 Smoking cigarettes per day: 60.0 Smoking status: Former smoker Tobacco type: cigarettes Second hand tobacco smoke exposure: No Alcohol intake: current Drinks per week: 1 Substance use: never Substance use type: does not use Do You Feel Safe in your Home?: Yes Lack of Transportation: No Lack of Food: Never True Current Housing: I Have Housing Concerned About Future Housing: No Difficulty Paying Gas/Electric Bills: No Difficulty Paying for Meds: No Currently Unemployed: No Education: High School Diploma/GED Difficulty w/ Childcare or Family Care: No Spiritual care concerns: No Meds Home Medications and Allergies Allergies Allergy/AdvReac Type Severity Reaction Status Date / Time No Known Drug Allergies Allergy Other Verified 05/18/25 21:52 Vital Signs Vital Signs - 24 hr 05/18/25 20:14 05/18/25 21:58 05/18/25 22:13 Temperature 36.3 C L 36.7 C Pulse Rate 81 79 77 Respiratory Rate 18 18 18 Blood Pressure 172/82 H 157/67 H 157/79 H Pulse Oximetry 94 95 95 Oxygen Delivery Room Air 05/18/25 22:40 05/18/25 22:58 05/19/25 00:00 Temperature 36.7 C 36.8 C Pulse Rate 77 75 Respiratory Rate 20 20 Blood Pressure 179/78 H 148/73 H Pulse Oximetry 96 98 Oxygen Delivery Room Air 05/19/25 04:00 05/19/25 07:00 Temperature 36.8 C Pulse Rate 63 63 Respiratory Rate 20 20 Blood Pressure 162/72 H Pulse Oximetry 95 95 Oxygen Delivery Room Air Exam Narrative: On exam at the bedside the patient is alert and oriented to person place and time left lower extremity examination reveals that he has the externally rotated left lower extremity is somewhat shortened with no swelling tenderness or deformity at the knees or the ankles of either side he has no pain with range of motion of his right hip. Bilateral upper extremity examination reveals superficial abrasions to the olecranon area with full range of motion of the elbow with full supination pronation and flexion extension of both elbows with full range of motion of both shoulders with no pain on range of motion. He has a good dorsalis pedis pulse bilateral lower extremities. Const: General: cooperative, healthy appearing, comfortable, no acute distress, well developed, alert and awake Nutritional Appearance: average body habitus Orientation/consciousness: patient oriented x3 Results Labs 05/19/25 05:33 05/19/25 05:33 Labs: Abnormal lab results 05/18/25 05/19/25 Range/Units 21:13 05:33 RBC 3.55 L 3.39 L (4.6-6.20) M/mm3 Hgb 11.7 L 11.0 L (14.0-18.0) g/dL Hct 34.4 L 33.5 L (42.0-52.0) % Plt Count 143 L (150-375) k/mm3 Immature Gran % (Auto) 0.6 H (0-0.5) % Neut % (Auto) 79.0 H (45.5-73.1) % Lymph % (Auto) 11.0 L 16.4 L (18.3-44.2) % [place] % (Auto) 9.6 H (2.6-8.5) % Lymph # (Auto) 0.72 L (0.9-3.2) K/mm3 Abs Immat Gran (auto) 0.04 H (0.00-0.031) K/mm3 PT 15.4 H (11.1-14.7) Seconds APTT 38.1 H (22.3-36.8) Seconds Sodium 135 L (137-145) mmol/L Chloride 108 H 110 H (98-107) mmol/L Carbon Dioxide 19 L (22-30) mmol/L BUN 27 H 26 H (9-20) mg/dL Creatinine 2.13 H 1.85 H (0.7-1.3) mg/dL Estimated GFR 31 L 37 L (59 - ) Total Protein 6.2 L (6.3-8.2) g/dL H & H 05/18/25 05/19/25 Range/Units 21:13 05:33 Hgb 11.7 L 11.0 L (14.0-18.0) g/dL Hct 34.4 L 33.5 L (42.0-52.0) % Coagulation 05/19/25 Range/Units 05:33 INR 1.2 All other labs normal.
--- NOTE | 2025-05-19 07:54 | WPDHPUPDATE1 ---
History and Physical Update Update Date/Time: 05/19/25 07:54 History and Physical has been reviewed, including an updated exam of the patient. There are NO changes in the patient's condition. Risks, benefits, and alternatives have been discussed and questions answered. Patient agrees to proceed with procedure. Treatment plan is for a left hip intertrochanteric fracture intramedullary obed fixation. Risks benefits alternatives and complications were discussed with the patient and agrees to proceed.
--- NOTE | 2025-05-19 08:16 | PC.NURSE ---
Pt transfered to OR at this time. Consents signed and on chart. No distress noted.
--- NOTE | 2025-05-19 08:19 | P.PNAN_ITS ---
Anes - Initial Pre Proc Eval Procedure: Operation Date: 05/19/25 08:30 Proposed Procedures p Intertrochanteric Nail(Left) - Flaco Guzman MD Date/Time: 05/19/25 08:19 Surgeon: Hai Allison MD Pre Op Diagnosis: L IT hip fx Patient Data Age: 69 Gender: M Height: 1.78 m Weight: 87 kg Last Vital Signs Temp 36.8 C 05/19/25 04:00 Pulse 63 05/19/25 07:00 Resp 20 05/19/25 07:00 BP 162/72 H 05/19/25 04:00 Pulse Ox 95 05/19/25 07:00 O2 Del Method Room Air 05/19/25 07:00 Allergies Allergy/AdvReac Type Severity Reaction Status Date / Time No Known Drug Allergies Allergy Other Verified 05/18/25 21:52 Laboratory Tests 05/18/25 05/19/25 21:13 05:33 WBC 6.5 K/mm3 6.5 K/mm3 (4.5-10.0) (4.5-10.0) RBC 3.55 L M/mm3 3.39 L M/mm3 (4.6-6.20) (4.6-6.20) Hgb 11.7 L g/dL 11.0 L g/dL (14.0-18.0) (14.0-18.0) Hct 34.4 L % 33.5 L % (42.0-52.0) (42.0-52.0) MCV 96.9 fl 98.8 fl (80-100) (80-100) MCH 33.0 pg 32.4 pg (26-34) (26-34) MCHC 34.0 g/dl 32.8 g/dl (32-36) (32-36) RDW 12.1 % 12.1 % (11.5-14.5) (11.5-14.5) Plt Count 156 k/mm3 143 L k/mm3 (150-375) (150-375) MPV 9.1 fl 9.5 fl (7.4-10.4) (7.4-10.4) Immature Gran % (Auto) 0.6 H % 0.5 % (0-0.5) (0-0.5) Neut % (Auto) 79.0 H % 71.5 % (45.5-73.1) (45.5-73.1) Lymph % (Auto) 11.0 L % 16.4 L % (18.3-44.2) (18.3-44.2) [place] % (Auto) 7.4 % 9.6 H % (2.6-8.5) (2.6-8.5) Eos % (Auto) 1.7 % 1.5 % (0-4.4) (0-4.4) Baso % (Auto) 0.3 % 0.5 % (0.2-1.2) (0.2-1.2) Lymph # (Auto) 0.72 L K/mm3 1.06 K/mm3 (0.9-3.2) (0.9-3.2) [place] # (Auto) 0.5 K/mm3 0.6 K/mm3 (0.1-0.6) (0.1-0.6) Eos # (Auto) 0.1 K/mm3 0.1 K/mm3 (0-0.3) (0-0.3) Baso # (Auto) 0.0 K/mm3 0.0 K/mm3 (0.0-0.1) (0.0-0.1) Abs Immat Gran (auto) 0.04 H K/mm3 0.03 K/mm3 (0.00-0.031) (0.00-0.031) Absolute Neuts (auto) 5.2 K/mm3 4.6 K/mm3 (1.3-6.7) (1.3-6.7) Absolute Nucleated RBC 0.000 K/mm3 0.000 K/mm3 (0.0-0.012) (0.0-0.012) Nucleated RBC % 0.0 % 0.0 % (0.0-0.2) (0.0-0.2) PT 15.4 H Seconds (11.1-14.7) INR 1.2 APTT 38.1 H Seconds (22.3-36.8) Sodium 138 mmol/L 135 L mmol/L (137-145) (137-145) Potassium 4.4 mmol/L 4.6 mmol/L (3.4-5.0) (3.4-5.0) Chloride 108 H mmol/L 110 H mmol/L (98-107) (98-107) Carbon Dioxide 22 mmol/L 19 L mmol/L (22-30) (22-30) Anion Gap 8 mmol/L 6 mmol/L (4-12) (4-12) BUN 27 H mg/dL 26 H mg/dL (9-20) (9-20) Creatinine 2.13 H mg/dL 1.85 H mg/dL (0.7-1.3) (0.7-1.3) Estim Creat Clear Calc 33 ml/min 36 ml/min Estimated GFR 31 L 37 L (59 - ) (59 - ) Glucose 108 mg/dL 106 mg/dL (65-110) (65-110) Calcium 9.9 mg/dL 9.1 mg/dL (8.4-10.2) (8.4-10.2) Magnesium 2.0 mg/dL 2.0 mg/dL (1.6-2.3) (1.6-2.3) Total Bilirubin 0.6 mg/dL 0.7 mg/dL (0.2-1.3) (0.2-1.3) AST 30 U/L 26 U/L (17-59) (17-59) ALT 26 U/L 23 U/L (6-50) (6-50) Alkaline Phosphatase 95 U/L 87 U/L (38-126) (38-126) Total Protein 6.7 g/dL 6.2 L g/dL (6.3-8.2) (6.3-8.2) Albumin 4.1 g/dL 3.8 g/dL (3.5-5.1) (3.5-5.1) Blood Type O Positive Antibody Screen Negative Patient hx anesthesia problems: none Family hx anesthesia problems: none Results Review: All pre-operative results and documents have been reviewed as part of the pre- operative evaluation. FORMERLY [facility] Past Medical History Medical History (Updated 05/18/25 @ 21:50 by NAT Hung) Renal failure Cardiovascular disease Surgical History Surgical History (Updated 05/19/25 @ 08:21 by Ki Lord MD) History of appendectomy Social History Social History Smoking packs per day: 3 Smoking cigarettes per day: 60.0 Smoking status: Former smoker Tobacco type: cigarettes Second hand tobacco smoke exposure: No Alcohol intake: current Drinks per week: 1 Substance use: never Substance use type: does not use Do You Feel Safe in your Home?: Yes Lack of Transportation: No Lack of Food: Never True Current Housing: I Have Housing Concerned About Future Housing: No Difficulty Paying Gas/Electric Bills: No Difficulty Paying for Meds: No Currently Unemployed: No Education: High School Diploma/GED Difficulty w/ Childcare or Family Care: No Spiritual care concerns: No Anes - Eval Final PreProcedure Day of Procedure 05/19/25 08:19 Patient weight: overweight Heart: regular rate and rhythm Lungs: clear to auscultation Airway: Mallampati scale class 1 Neurological: alert and oriented Last oral intake: >/= 8 hours ASA classification: III Emergent: no Anesthetic plan: proceed Anesthesia type and monitoring: general LMA and standard monitoring Results Review: All pre-operative results and documents have been reviewed as part of the pre- operative evaluation. Informed Consent: The patient's anesthetic plan and its attendant risks and benefits were discussed with the patient/family/POA. Questions were solicited and answers provided to the satisfaction of the patient/family/POA.
--- NOTE | 2025-05-19 08:29 | W.PM.PROC2 ---
Procedure Note - Detailed Date of Procedure 05/19/25 Pre-op Diagnosis L IT hip fx Post-op Diagnosis Same Procedure Performed 1. Left Hip Intertrochanteric Fracture IM Conor Fixation 2. Left Hip Intra-operative Fluoroscopy Surgeon Flaco Guzman MD Anesthesia General Indications Left Hip Fracture after a fall from pallet at work yesterday. Findings Left Hip Fracture IT Fracture Implants Gamma 3 IM Conor Short Urine Output 425
[2025-05-19] MEDS: LIDO 1%/EPINEPHRINE 1:100,000 20 ML VIAL 30 ML INFILTRATE (09:09)
[2025-05-19] MEDS: LACTATED RINGERS 1,000 ML 30 ML IV CONT (09:46)
--- NOTE | 2025-05-19 09:54 | W.PM.PROC2 ---
Procedure Note - Detailed Date of Procedure 05/19/25 Pre-op Diagnosis L IT hip fx Post-op Diagnosis Same Procedure Performed 1. Left Hip IM Conor Fixation 2. 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 The patient was evaluated in the emergency department and determined to have a left hip intertrochanteric fracture. After the left hip was marked while the patient was in his room and consulted with regards to the left hip intertrochanteric fracture, I discussed with the patient treatment. Options. Given the patient's fracture which is a left hip intertrochanteric fracture the patient will not be able to ambulate or 2 set up without significant pain. The risks benefits alternatives and complications were discussed with the patient which include but are not limited to infection or blood vessel injury DVT nonunion malunion requiring additional surgery the patient agreed to proceed. Patient was then brought to the operating room placed in supine position which time he underwent general anesthesia. He was then transferred to the operating room table. He is placed on a fracture table with the right lower extremity flexed at 90? of the hip in the knee with all bony prominences padded left lower extremity was placed in full extension at the knee and at the hip and placed in traction. Fluoroscopy was used to verify reduction after traction and internal rotation. AP and lateral views were used to verify anatomic reduction by fluoroscopy. The left hip was then prepped and draped in standard sterile fashion. A 1 in incision was made proximal to the greater trochanter left hip. A guidewire was placed to be at the tip of the greater trochanter to be at the junction of the middle 3rd and the anterior 1/3 of the greater troch based on the AP and lateral views. The guidewire was then advanced an opening Reamer was used to create an opening hole into the greater trochanter. After this was done I then removed the regional guidewire and placed the ball-tip guidewire into the femoral shaft to the same level. After this was done I then placed by gamma 3 Bernadette nail into position and verified the positioning as far as the proximal to distal positioning based on fluoroscopic views. I then proceeded to place a guidewire the lateral aspect of the femur into the femoral neck and head center on center position based on AP and lateral views. After this was done I then measured this to be 100 mm in length. I then proceeded to place a 100 mm screw after drilling to the 100 mm depth. AP and lateral views were again used to verify positioning of the screw to be extra-articular and to be within 1 cm of the subchondral bone of the femoral head. AP and lateral views were also used to verify maintenance of reduction after placing the trochanteric nail. I then turned my attention distally at which time I made a 1/2 inch incision in order to place the interlocking screw in the dynamic position. After this was done again fluoroscopy was used to verify length of the screw distally as well as likely the screw proximally. And reduction of the fracture site. All 3 incision sites were then irrigated copiously injected with local anesthetic and then closed using Monocryl suture in the dermal layer and Steri-Strips are placed. The patient was then transferred to the recovery room in stable condition. The patient will be weight-bearing as tolerated he will receive 24 hours of antibiotics IV and physical therapy. Implants Bernadette, Gamma 3 Nail, 170mm length Estimated Blood Loss 50 Urine Output 425 Drains No Packing No Pathology None sent Complications No immediate complications Condition Stable Disposition PACU
--- NOTE | 2025-05-19 10:21 | P.PNIM_ITS ---
Progress Note: A&P Assessment and Plan (1) Fall: Code(s): W19.XXXA - Unspecified fall, initial encounter Status: Acute Assessment and Plan: * Sustained fall off of pallets at work * Fall precautions * Bedrest * * pt/ot (2) Closed intertrochanteric fracture of left femur: Code(s): S72.142A - Displaced intertrochanteric fracture of left femur, initial encounter for closed fracture Status: Acute Assessment and Plan: * Bedrest * Louise catheter placed to gravity * Fall precautions * Consult orthopedics * Pain control with Dilaudid 1 mg IV push q.3 hours p.r.n. severe pain * Zofran 4 mg IV push p.r.n. nausea q.4 hours * Type and screen pending * 05/19-Procedure Performed 1. Left Hip Intertrochanteric Fracture IM Conor Fixation 2. Left Hip Intra-operative Fluoroscopy with DR Flaco Guzman - diet advanced to heart healthy PT/OT ordered: The patient will be weight-bearing as tolerated.. per ortho recommendation (3) Cardiovascular disease: Code(s): I25.10 - Atherosclerotic heart disease of [place] coronary artery without angina pectoris Status: Chronic Assessment and Plan: * Unknown extent of cardiovascular disease as patient is a poor historian of his own history. * EKG showing normal sinus rhythm 82 beats per minute * Will obtain echo as it is noted patient is on anticoagulants but is uncertain as to why as well as carvedilol, aspirin and losartan * Monitor and trend labs and vital signs * Will provide a p.r.n. hydralazine order for any hypertension with systolic greater than 180 and diastolic greater than 90. (4) Renal failure: Code(s): N19 - Unspecified kidney failure Status: Acute Assessment and Plan: * Uncertain if acute on chronic as we have no comparison data in EMR. * Creatinine and BUN noted to be 2.13 and 27. * Will hydrate patient with normal saline at 100 mL/hour. * Continue to trend renal function with daily labs * Louise catheter placed in the setting of acute fracture and decreased Mobility. Plan Full code SCDs Time Spent With Patient Time with patient: 25 - 35 minutes Subjective Date/time seen: 05/19/25 10:21 Interval history: This is a very pleasant 69-year-old male patient with cardiac history although patient is a very poor historian of his own health. 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 He provides me with a picture of medications that he takes including Xarelto (apparently patient does not take this exact blood thinner anymore and states he takes a different 1. ) Aspirin, omeprazole, carvedilol, Wellbutrin, losartan but patient cannot tell me why he takes any blood thinner or any of his medications as he states his blood pressure is often low and not high despite the prescribing of 2 blood pressure medications. Patient denies having any cardiac stents and has never been told he has been in atrial fibrillation. He denies any known history of DVT or PE. He states he has been told, ?there is a narrow vein on the front of my heart.Today at work patient was standing on a Pallet and slipped and fell landing onto the left hip. It was a fall of about 2 ft height. Patient denies any head injury or loss of consciousness and no neck injury. His only complaints of pain is in the left hip. At rest pain is more tolerable, however any movement exacerbates the pain. He was brought to the emergency room for evaluation and workup was performed. We do not have any previous laboratory or imaging/cardiovascular data on file for this patient so there are no comparisons. Labs that were performed shows mild anemia with hemoglobin of 11.7 and hematocrit of 34.4. Otherwise no leukocytosis and preserved platelets of 156. Metabolic panel significant findings of BUN of 27 and creatinine of 2.13. Type and screen is pending. Vital signs showing a marginally elevated blood pressure at 172/82, suspect pain response. Left hip imaging shows a left from oral inter trochanter fracture without angulation. ER physician spoke with Orthopedic surgery on-call, Dr. Guzman, and patient will be admitted to the hospital tonight, kept NPO, pain medications administered and will be prepared for OR tomorrow. Pt is gudelia nd examined 1. Left Hip IM Conor Fixation 2. Left Hip Intra-operative Fluorsocopy with DR Flaco Guzman today He is calm and pain well controlled. NO acute concerns Review of Systems Review of Systems: All systems reviewed & are unremarkable except as noted in HPI and below Exam Const: General: no acute distress and uncomfortable Other: Male patient lying supine on stretcher at this time, appearing uncomfortable with any movements. HENMT: Face/Nose/Sinus: Normal nares present Mouth: Yes moist mucous membranes Eyes: General: appearance normal, both eyes and all related structures Sclera: sclerae normal EOM: EOMs intact bilaterally Neck: Neck: supple and no JVD Lymphatic: lymphadenopathy not noted Chest: Other: Nontender Resp: Effort & Inspection: normal respiratory effort Auscultation: clear to auscultation bilaterally Cardio: Rate: regular rate Rhythm: regular rhythm Heart sounds: no gallops, no murmurs and no rubs GI: Auscultation: normal bowel sounds Back/Spine/Pelvis: Pelvis: Other pelvic findings (Tenderness over the left greater trochanter. No crepitus.) Coccyx: Other pelvic findings (Tenderness over the left greater trochanter. No crepitus.) Skin: General skin exam: normal color, No lesion and No rashes Lesions: no lesions noted Rashes: no rashes noted Wounds: no wounds Neuro: Speech: normal speech Motor exam (neuro): Abnormal motor strength present (Left hip secondary to pain) Sensory Exam: normal sensation Extrem: Other: Left hip tenderness to palpation. Decreased active range of motion. Psych: Mental Status: mental status grossly normal Affect: normal affect Other: Poor historian of health Objective Data Vital Signs Vital Signs: Vital Signs - 24 hr 05/18/25 20:14 05/18/25 21:58 05/18/25 22:13 Temperature 97.3 F L 98.1 F Pulse Rate 81 79 77 Respiratory Rate 18 18 18 Blood Pressure 172/82 H 157/67 H 157/79 H Pulse Oximetry 94 95 95 Oxygen Delivery Room Air Oxygen Flow Rate 05/18/25 22:40 05/18/25 22:58 05/19/25 00:00 Temperature 98.1 F 98.2 F Pulse Rate 77 75 Respiratory Rate 20 20 Blood Pressure 179/78 H 148/73 H Pulse Oximetry 96 98 Oxygen Delivery Room Air Oxygen Flow Rate 05/19/25 04:00 05/19/25 07:00 05/19/25 09:46 Temperature 98.3 F 97.8 F Pulse Rate 63 63 71 Respiratory Rate 20 20 18 Blood Pressure 162/72 H 155/78 H Pulse Oximetry 95 95 99 Oxygen Delivery Room Air Simple Face Mask Oxygen Flow Rate 6 05/19/25 10:00 05/19/25 10:10 05/19/25 10:15 Temperature Pulse Rate 65 69 Respiratory Rate 14 12 Blood Pressure 154/64 H 159/79 H Pulse Oximetry 97 91 Oxygen Delivery Simple Face Mask Room Air Room Air Oxygen Flow Rate 6 Intake/Output Intake/Output: Intake & Output 05/16/25 05/17/25 05/18/25 05/19/25 23:59 23:59 23:59 23:59 Intake Total 0 Output Total 1275 Balance -1275 Meds/Results Medications: Active Medications Generic Name Dose Route Start Last Admin Trade Name Freq PRN Reason Stop Dose Admin Fentanyl Citrate 25 mcg 05/19/25 08:22 Fentanyl Citrate Inj (*Crx) 100 Mcg/2 Ml Vial IV PUSH Q2M PRN Pain Hydralazine HCl 10 mg 05/18/25 21:52 Hydralazine Hcl 20 Mg/Ml Vial IV PUSH Q8H PRN Blood Pressure - High Hydromorphone HCl 1 mg 05/18/25 21:52 05/19/25 05:06 Hydromorphone Hcl Inj (*Crx) 1 Mg/Ml Syr IV PUSH 1 mg Q3HR PRN Administration pain Sodium Chloride 1,000 mls @ 100 mls/hr 05/18/25 21:55 05/18/25 22:30 Normal Saline Iv IV CONT 100 mls/hr .Q10H VEE Administration Lactated Ringer's 1,000 mls @ 30 mls/hr 05/19/25 07:40 Lr - Lactated Ringers Iv IV CONT .Q24H VEE Lactated Ringer's 1,000 mls @ 30 mls/hr 05/19/25 08:25 05/19/25 09:46 Lr - Lactated Ringers Iv IV CONT 30 mls/hr .Q24H VEE Administration Ondansetron HCl 4 mg 05/18/25 21:52 Ondansetron Inj 4 Mg/2 Ml Vial IV PUSH Q6HR PRN nausea Ondansetron HCl 4 mg 05/19/25 08:22 Ondansetron Inj 4 Mg/2 Ml Vial IV PUSH ONCE PRN Nausea Perflutren Lipid Microsphere 0 ml 05/18/25 21:52 Perflutren Lipid Microspheres 1.5 Ml Vial Diluted To 10 Ml Total Volume IV PUSH 05/21/25 21:53 ONCE PRN adequate visualization Protocol Radiology Results: ITS Impressions Hip/Pelvis X-Ray 05/18/25 20:46 Impression: 1: Left femoral intertrochanteric fracture. Chest X-Ray 05/19/25 07:30 Impression: 1: Bilateral interstitial infiltrates. Differential diagnosis includes pulmonary edema, atypical pneumonia and chronic interstitial lung disease. Fluoroscopy 05/19/25 09:44 IMPRESSION: Fluoroscopy used during intraoperative fixation of left hip fracture. Labs Labs: Laboratory Results - last 24 hr 05/18/25 05/19/25 21:13 05:33 WBC 6.5 6.5 RBC 3.55 L 3.39 L Hgb 11.7 L 11.0 L Hct 34.4 L 33.5 L MCV 96.9 98.8 MCH 33.0 32.4 MCHC 34.0 32.8 RDW 12.1 12.1 Plt Count 156 143 L MPV 9.1 9.5 Immature Gran % (Auto) 0.6 H 0.5 Neut % (Auto) 79.0 H 71.5 Lymph % (Auto) 11.0 L 16.4 L [place] % (Auto) 7.4 9.6 H Eos % (Auto) 1.7 1.5 Baso % (Auto) 0.3 0.5 Lymph # (Auto) 0.72 L 1.06 [place] # (Auto) 0.5 0.6 Eos # (Auto) 0.1 0.1 Baso # (Auto) 0.0 0.0 Abs Immat Gran (auto) 0.04 H 0.03 Absolute Neuts (auto) 5.2 4.6 Absolute Nucleated RBC 0.000 0.000 Nucleated RBC % 0.0 0.0 PT 15.4 H INR 1.2 APTT 38.1 H Sodium 138 135 L Potassium 4.4 4.6 Chloride 108 H 110 H Carbon Dioxide 22 19 L Anion Gap 8 6 BUN 27 H 26 H Creatinine 2.13 H 1.85 H Estim Creat Clear Calc 33 36 Estimated GFR 31 L 37 L Glucose 108 106 Calcium 9.9 9.1 Magnesium 2.0 2.0 Total Bilirubin 0.6 0.7 AST 30 26 ALT 26 23 Alkaline Phosphatase 95 87 Total Protein 6.7 6.2 L Albumin 4.1 3.8 Blood Type O Positive Antibody Screen Negative Quality VTE Prophylaxis VTE prophylaxis: mechanical ordered
--- NOTE | 2025-05-19 11:13 | PC.NURSE ---
Pt returned to floor via bed. No distress noted.
[2025-05-19] MEDS: SODIUM CHLORIDE 0.9% IV 1,000 ML 100 ML IV CONT (12:51)
[2025-05-20] VITALS (9 sets, daily range): BP systolic 130–162; BP diastolic 66–88; PULSE 67–95; RESP 16–20; TEMP 36.1–37; O2SAT 93–96
--- NOTE | 2025-05-20 | ECHO_ITS ---
Patient Info Name: Abhilash Yates Age: 69 years : 1955 Gender: Male Ht: 70 in Wt: 191 lbs BSA: 2.08 m2 HR: 68 bpm BP: 130 / 88 mmHg Technical Quality: Fair Exam Date: 05/20/2025 1:39 PM Patient Status: I Admit Date: 05/18/2025 Exam Type: CA echo doppler color flow Complete two-dimensional, color flow and Doppler transthoracic echocardiogram is performed. Staff Referring Physician: Flaco Guzman MD Solvent Plant Operator: Yuliet Ortiz Attending Provider: Hai Allison Summary 1. Complete two-dimensional, color flow and Doppler transthoracic echocardiogram is performed. 2. Left ventricular systolic function is normal, estimated at 55-60. 3. The left ventricular diastolic function is grade I diastolic dysfunction. 4. There is trace tricuspid valve regurgitation. 5. No pulmonary hypertension, estimated pulmonary arterial systolic pressure is 32 mmHg. Left Ventricle Left ventricular chamber dimension is normal. Left ventricular systolic function is normal, estimated at 55-60. There is no increased left ventricular wall thickness. Left ventricular septal wall motion is normal. The left ventricular diastolic function is grade I diastolic dysfunction. Right Ventricle Right ventricular chamber dimension is normal. Right ventricular systolic function is normal. Left Atria Left atrial chamber dimension is normal. Right Atria Right atrial chamber dimension is normal. Aortic Valve The aortic valve is trileaflet. There is no aortic valve sclerosis. There is no aortic valve stenosis. There is no aortic valve regurgitation. Pulmonic Valve The pulmonic valve is normal. There is no pulmonic valve stenosis. There is no pulmonic regurgitation. Mitral Valve The mitral valve has normal leaflets. There is no mitral valve stenosis. There is no mitral valve regurgitation. Tricuspid Valve The tricuspid valve leaflets are normal. There is no significant tricuspid valve stenosis. There is trace tricuspid valve regurgitation. No pulmonary hypertension, estimated pulmonary arterial systolic pressure is 32 mmHg. Pericardium/Pleural The pericardium appears normal. There is no pericardial effusion. Inferior Vena Cava Normal inferior vena cava with >50% collapse upon inspiration consistent with normal right atrial pressure, 5 mmHg. Aorta The aortic root size at the sinus of Valsalva is normal. The prox ascending aorta size is normal. Left Ventricular Outflow Tract Name Value Normal LVOT 2D LVOT Diameter 2.1 cm LVOT Doppler LVOT Peak Velocity 103 cm/s LVOT Peak Gradient 4 mmHg LVOT Mean Gradient 2 mmHg LVOT VTI 23 cm LVOT VTI/AV VTI Ratio 0.7 LVOT Stroke Volume 78 ml LVOT CO 13.5 l/min LVOT CI 6.5 l/min/m2 Pulmonic Valve Name Value Normal PV Doppler PV Peak Velocity 123 cm/s PV Peak Gradient 6 mmHg Mitral Valve Name Value Normal MV Diastolic Function MV E Peak Velocity 79 cm/s MV A Peak Velocity 100 cm/s MV E/A 0.8 MV Decel Time (PW) 239 ms MV Annular TDI MV E/e' (Septal) 12.2 MV E/e' (Lateral) 9.1 MV E/e' (Average) 10.6 Tricuspid Valve Name Value Normal TV Regurgitation Doppler TR Peak Velocity 259 cm/s TR Peak Gradient 25 mmHg Estimated PAP/RSVP RA Pressure 5 mmHg <=5 PA Systolic Pressure 32 mmHg <36 RV Systolic Pressure 32 mmHg <36 TV Annular TDI TV Lateral Emelina s' Velocity 14.8 cm/s >=9.5 Aorta Name Value Normal Ascending Aorta Ao Root Diameter (MM) 3.7 cm Ao Root Diam Index (MM) 1.8 cm/m2 Aortic Valve Name Value Normal AV Doppler AV Peak Velocity 154 cm/s AV Peak Gradient 10 mmHg AV Mean Gradient 5 mmHg AV VTI 32 cm AV Area (Cont Eq VTI) 2.4 cm2 >=3.0 AV Area (Cont Eq Alli) 2.3 cm2 AV DI (Alli) 0.67 AV Regurgitation 2D LVOT Area 3.4 cm2 Ventricles Name Value Normal LV Dimensions 2D/MM IVS Diastolic Thickness (2D) 1.2 cm 0.6-1.0 LVID Diastole (2D) 5.1 cm 4.2-5.8 LVIW Diastolic Thickness (2D) 1.2 cm 0.6-1.0 LVID Systole (2D) 3.1 cm 2.5-4.0 LVOT Diameter 2.1 cm LV Mass (2D Cubed) 230.42 g 88.00-224.00 LV Mass Index (2D Cubed) 111 g/m2 49-115 Relative Wall Thickness (2D) 0.46 <=0.42 LV Fractional Shortening/Ejection Fraction 2D/MM LV Fractional Shortening (2D) 39 % 25-43 LV EF (2D Te[place]holz) 70 % LV Diastolic Volume (4C MOD) 110 ml LV EF (4C MOD) 69 % LV Diastolic Volume (2C MOD) 86 ml LV EF (2C MOD) 57 % LV Diastolic Volume (BP MOD) 98 ml 62-150 LV Diastolic Volume Index (BP MOD) 47 ml/m2 34-74 LV Systolic Volume (BP MOD) 37 ml 21-61 LV Systolic Volume Index (BP MOD) 18 ml/m2 11-31 LV EF (BP MOD) 63 % 52-72 LV Diastolic Length (4C) 8.3 cm LV Systolic Length (4C) 6.8 cm LV Stroke Volume (4C MOD) 76 ml RV Dimensions 2D/MM RVID Diastole (2D) 3.6 cm 2.1-3.5 Atria Name Value Normal LA Dimensions LA Volume (4C A-L) 56 ml LA Volume (BP A-L) 52 ml RA Dimensions RA Systolic Major [place] Length (4C) 4.6 cm 2.1-2.7 RA Area (4C) 15.9 cm2 <=18.0 Report Signatures
[2025-05-20] MEDS: HYDROmorphone HCL INJ (*CRX) 1 MG/ML SYR IV PUSH ×2 (03:14→08:29)
--- NOTE | 2025-05-20 08:01 | P.PNIM_ITS ---
Progress Note: A&P Assessment and Plan (1) Fall: Code(s): W19.XXXA - Unspecified fall, initial encounter Status: Acute Assessment and Plan: Sustained fall after slipping off of pallets at work Denies head strike, LOC or neck pain Denies dizziness/lightheadedness prior to fall * Hip/pelvis XR 05/18: left femoral intertrochanteric fracture. Repeat XR following operation: Anatomic alignment of left femoral intertrochanteric fracture status post internal fixation. * Chest XR 05/19: Bilateral interstitial infiltrates. Differential diagnosis includes pulmonary edema, atypical pneumonia and chronic interstitial lung disease * Fall precautions * pt/ot * See plan below (2) Closed intertrochanteric fracture of left femur: Code(s): S72.142A - Displaced intertrochanteric fracture of left femur, initial encounter for closed fracture Status: Acute Assessment and Plan: Hip/pelvis XR 05/18: left femoral intertrochanteric fracture. Repeat XR following operation: Anatomic alignment of left femoral intertrochanteric fracture status post internal fixation. * Louise catheter to be removed on 05/20, voiding trial to be performed * Fall precautions * Pain control with [place] 5-325 mg q4H PRN and Dilaudid 1 mg IV push q.3 hours p.r.n. severe pain * Zofran 4 mg IV push p.r.n. nausea q.4 hours * PT/OT eval and treat weight bearing as tolerated per ortho recommendations Recommending acute inpatient rehab * DVT ppx with patients home asprin and xarelto, confirmed okay to resume per ortho Dr. Guzman * Consult orthopedics s/p left hip IM obed fixation and intra operative fluoroscopy on 05/[address] Guzman (3) Heart failure with reduced ejection fraction: Code(s): I50.20 - Unspecified systolic (congestive) heart failure Status: Acute Assessment and Plan: Spoke with RN at Dr. Gates office who confirmed patient has hx HF with reduced EF. Previously EF 40%, however most recent EF 50% - BNP ordered - Chest XR: Bilateral interstitial infiltrates. Differential diagnosis includes pulmonary edema, atypical pneumonia and chronic interstitial lung disease. - Echo ordered - Continue carvedilol 25 mg BID and losartan 100 mg daily - Monitor vital signs, I&Os, BUN/creatinine, daily weights, neuro status and patient is a fall risk - Monitor serum electrolytes, Keep serum Potassium>4 and serum Magnesium>2 and CBC (4) Cardiovascular disease: Code(s): I25.10 - Atherosclerotic heart disease of [place] coronary artery without angina pectoris Status: Chronic Assessment and Plan: Unknown extent of cardiovascular disease as patient is a poor historian of his own history. Followed by Dr. Joshua dawson shredded filler machine wrapper layer [facility] Spoke with RN at Dr. Gates office who confirmed patient has hx CAD no stents, stable angina, PAD, HLD, HF with reduced EF 50%, HTN. Med list confirmed, all of which was correct except missing asa 81 mg daily. Will obtain echo as it is noted patient is on anticoagulants but is uncertain as to why as well as carvedilol, aspirin and losartan EKG showing normal sinus rhythm 82 beats per minute Monitor and trend labs and vital signs Will provide a p.r.n. hydralazine order for any hypertension with systolic greater than 180 and diastolic greater than 90. (5) Renal failure: Code(s): N19 - Unspecified kidney failure Status: Acute Assessment and Plan: BUN/Cr 27/2.13 with GFR 31 on admission Patient states history of CKD stage III, we have no comparison data in EMR. * Creatinine and BUN slightly improved on am labs at 26/1.69 with GFR 41 * Will continue to hydrate patient with normal saline at 100 mL/hour, monitor volume status * Continue to trend renal function with daily labs * Louise catheter placed in the setting of acute fracture and decreased Mobility, discontinued. Voiding trial to be performed. * Monitor I/O * Renally dose medications * Avoid neprhotoxic medications (6) CAD (coronary artery disease): Code(s): I25.10 - Atherosclerotic heart disease of [place] coronary artery without angina pectoris Status: Acute Assessment and Plan: Chronic, continue atorvastatin 80 mg daily, carvedilol 25 mg BID, aspirin 81 mg daily and Xarelto 2.5 mg BID No prior stents Followed by Dr. Joshua dawson shredded filler machine wrapper layer [facility] (7) Hypertension: Code(s): I10 - Essential (primary) hypertension Status: Acute Assessment and Plan: Chronic, continue home medications - losartan 100 mg daily - carvedilol 25 mg BID - continue to monitor (8) PAD (peripheral artery disease): Code(s): I73.9 - Peripheral vascular disease, unspecified Status: Acute Assessment and Plan: Chronic, continue atorvastatin 80 mg daily, carvedilol 25 mg BID, aspirin 81 mg daily and Xarelto 2.5 mg BID Followed by Dr. Lewis a shredded filler machine wrapper layer [facility] Time Spent With Patient Time with patient: 25 - 35 minutes Subjective Date/time seen: 05/20/25 08:01 Interval history: 69-year-old male patient with cardiac history who presents to the hospital following a fall after standing on a Pallet when he slipped landing onto the left hip. Patient denies any head injury or loss of consciousness and no neck injury. Patient is pleasant sitting up comfortably in his chair. He has no complaints stating that pain is well controlled on the current regimen. He denies any tingling/numbness or shooting pain. He does note that he had one episode of vomiting early this morning however he relates this to his pain medication. He denies any current nausea/vomiting or abdominal pain. He has not had a BM since surgery but is passing flatus. He has no other complaints denying chest pain, palpitations, and shortness of breath. Spoke with RN at Dr. Gates office who confirmed patient has hx CAD no stents, stable angina, PAD, HLD, HF with reduced EF 50%, HTN. Med list confirmed, all of which was correct except missing asa 81 mg daily. Review of Systems Review of Systems: All systems reviewed & are unremarkable except as noted in HPI and below Exam Narrative: AF General: well nourished, well-developed male in no acute respiratory distress who is nontoxic appearing, lying semi recumbent in bed. HEENT: Normocephalic. Atraumatic. Pupils equal round reactive to light. Extraocular movement intact. Sclera clear and anicteric. Nares patent. No oral lesions. Moist mucous membranes. Tongue is midline. Palate consuelo symmetrically. No facial asymmetry. Neck: Neck was supple. No dominant adenopathy, thyromegaly or masses. 2+ carotid upstrokes without bruits. Chest: Lungs are clear to auscultation bilaterlly. No wheezes or crackles. CV: Heart was regular rate and rhythm. S1/S2. No murmurs, gallops, or rubs. Abd: Abdomen was soft. Nontender. Nondistended. Postive bowel sounds. No organomegaly or masses. Ext: No clubbing, cyanosis, or edema. 2+ DP pulses bilaterally. Neuro: Patient is alert and oriented x4. Strenth is 5/5 in both upper and lower extremities. Cranial nerves 2-12 are intact. Speech is clear. Psych: Normal nood and affect. Patient is pleasant and cooperative. Skin: Warm and dry. No rashes noted. Objective Data Vital Signs Vital Signs: Vital Signs - 24 hr 05/19/25 09:46 05/19/25 10:00 05/19/25 10:10 Temperature 97.8 F Pulse Rate 71 65 Respiratory Rate 18 14 Blood Pressure 155/78 H 154/64 H Pulse Oximetry 99 97 Oxygen Delivery Simple Face Mask Simple Face Mask Room Air Oxygen Flow Rate 6 6 05/19/25 10:15 05/19/25 10:30 05/19/25 10:45 Temperature 97.8 F Pulse Rate 69 66 68 Respiratory Rate 12 12 12 Blood Pressure 159/79 H 160/80 H 171/76 H Pulse Oximetry 91 91 92 Oxygen Delivery Room Air Room Air Room Air Oxygen Flow Rate 05/19/25 11:00 05/19/25 11:30 05/19/25 11:45 Temperature 96.8 F L 96.7 F L 96.7 F L Pulse Rate 75 71 70 Respiratory Rate 20 20 20 Blood Pressure 157/67 H 167/69 H 151/74 H Pulse Oximetry 92 92 92 Oxygen Delivery Oxygen Flow Rate 05/19/25 12:45 05/19/25 18:30 05/19/25 20:00 Temperature 97.8 F 97.8 F Pulse Rate 80 80 Respiratory Rate 20 20 Blood Pressure 112/66 120/60 Pulse Oximetry 94 96 Oxygen Delivery Room Air Oxygen Flow Rate 05/19/25 20:00 05/20/25 00:00 05/20/25 04:00 Temperature 98.4 F 98.0 F 98.6 F Pulse Rate 86 84 80 Respiratory Rate 20 18 18 Blood Pressure 126/61 151/67 H 130/88 Pulse Oximetry 94 93 94 Oxygen Delivery Oxygen Flow Rate 05/20/25 07:11 Temperature Pulse Rate 80 Respiratory Rate 18 Blood Pressure Pulse Oximetry 94 Oxygen Delivery Room Air Oxygen Flow Rate Intake/Output Intake/Output: Intake & Output 05/17/25 05/18/25 05/19/25 05/20/25 23:59 23:59 23:59 23:59 Intake Total 1940 100 Output Total 2510 1050 Balance -570 -950 Meds/Results Medications: Active Medications Generic Name Dose Route Start Last Admin Trade Name Freq PRN Reason Stop Dose Admin Hydralazine HCl 10 mg 05/18/25 21:52 Hydralazine Hcl 20 Mg/Ml Vial IV PUSH Q8H PRN Blood Pressure - High Hydromorphone HCl 1 mg 05/18/25 21:52 05/20/25 03:14 Hydromorphone Hcl Inj (*Crx) 1 Mg/Ml Syr IV PUSH 1 mg Q3HR PRN Administration pain Sodium Chloride 1,000 mls @ 100 mls/hr 05/18/25 21:55 05/19/25 12:51 Normal Saline Iv IV CONT 100 mls/hr .Q10H VEE Administration Ondansetron HCl 4 mg 05/18/25 21:52 Ondansetron Inj 4 Mg/2 Ml Vial IV PUSH Q6HR PRN nausea Perflutren Lipid Microsphere 0 ml 05/18/25 21:52 Perflutren Lipid Microspheres 1.5 Ml Vial Diluted To 10 Ml Total Volume IV PUSH 05/21/25 21:53 ONCE PRN adequate visualization Protocol Radiology Results: ITS Impressions Chest X-Ray 05/19/25 07:30 Impression: 1: Bilateral interstitial infiltrates. Differential diagnosis includes pulmonary edema, atypical pneumonia and chronic interstitial lung disease. Fluoroscopy 05/19/25 09:44 IMPRESSION: Fluoroscopy used during intraoperative fixation of left hip fracture. Hip/Pelvis X-Ray 05/19/25 11:01 Impression: 1: Anatomic alignment of left femoral intertrochanteric fracture status post internal fixation. Quality VTE Prophylaxis VTE prophylaxis: mechanical ordered
[2025-05-20 08:30] LABS: Hematocrit 35.0 % (42.0-52.0); Hemoglobin 11.6 g/dL (14.0-18.0); Mean Corpuscular HGB Conc 33.1 g/dl (32-36); Mean Corpuscular Hemoglobin 33.0 pg (26-34); Mean Corpuscular Volume 99.4 fl (80-100); Platelet Count Result 171 k/mm3 (150-375); Red Blood Count 3.52 M/mm3 (4.6-6.20); White Blood Count 10.1 K/mm3 (4.5-10.0)
[2025-05-20 08:49] LABS: Alanine Aminotransferase 26 U/L (6-50); Albumin Level 4.1 g/dL (3.5-5.1); Alkaline Phosphatase 80 U/L (38-126); Anion Gap 10 mmol/L (4-12); Aspartate Amino Transferase 30 U/L (17-59); Bilirubin,Total 0.6 mg/dL (0.2-1.3); Blood Urea Nitrogen 26 mg/dL (9-20); Calcium 9.5 mg/dL (8.4-10.2); Carbon Dioxide 20 mmol/L (22-30); Chloride 107 mmol/L (98-107); Estimated CRCL calculation 40 ml/min; Estimated Glomerular Filt Rate 41; Glucose 144 mg/dL (65-110); Potassium 4.4 mmol/L (3.4-5.0); Sodium 137 mmol/L (137-145); Total Protein 6.6 g/dL (6.3-8.2)
--- NOTE | 2025-05-20 10:07 | WPDANESPN ---
Anes - Prog Note Post-Op Date/Time: 05/20/25 10:07 Cardiovascular status: normal Respiratory status: normal Airway patency: baseline Mental status: baseline Post-Op hydration status: normal Vital Signs: Last Vital Signs Temp 36.3 C L 05/20/25 08:00 Pulse 74 05/20/25 08:00 Resp 18 05/20/25 08:00 BP 153/84 H 05/20/25 08:00 Pulse Ox 94 05/20/25 08:00 O2 Del Method Room Air 05/20/25 08:03 O2 Flow Rate 6 05/19/25 10:00 Pain Score (VAS): 2 I/O: Intake & Output 05/19/25 05/20/25 05/20/25 23:59 07:59 15:59 Intake Total 480 100 240 Output Total 1200 1050 Balance -720 -950 240 Laboratory Tests 05/20/25 08:12 05/20/25 08:12 05/20/25 08:12 WBC 10.1 H RBC 3.52 L Hgb 11.6 L Hct 35.0 L MCV 99.4 MCH 33.0 MCHC 33.1 RDW 12.3 Plt Count 171 MPV 9.3 Sodium 137 Potassium 4.4 Chloride 107 Carbon Dioxide 20 L Anion Gap 10 BUN 26 H Creatinine 1.69 H Estim Creat Clear Calc 40 Estimated GFR 41 L Glucose 144 H Calcium 9.5 Total Bilirubin 0.6 AST 30 ALT 26 Alkaline Phosphatase 80 Total Protein 6.6 Albumin 4.1 Post-procedural complaints: none Patient Feedback: Patient satisfied with anesthetic care.
[2025-05-20 13:32] LABS: NT Pro B Type Natriuretic Pept 859 pg/mL (19.9-100)
[2025-05-20] MEDS: HYDROcodone/acetaminophen (*CRX) 5-325 MG TABLET 1 TAB PO (16:30)
[2025-05-20] MEDS: RIVAROXABAN 2.5 MG TABLET PO (20:11)
[2025-05-21] VITALS: BP 125/65; PULSE 68; RESP 16; TEMP 36.6; O2SAT 94
[2025-05-21 04:00] VITALS: BP 121/57; PULSE 78; RESP 20; TEMP 36.5; O2SAT 93
[2025-05-21] MEDS: MAG HYDROX/AL HYDROX/SIMETH 30 ML UDC PO (04:24)
[2025-05-21 06:22] LABS: Hematocrit 33.2 % (42.0-52.0); Hemoglobin 11.0 g/dL (14.0-18.0); Mean Corpuscular HGB Conc 33.1 g/dl (32-36); Mean Corpuscular Hemoglobin 32.6 pg (26-34); Mean Corpuscular Volume 98.5 fl (80-100); Platelet Count Result 167 k/mm3 (150-375); Red Blood Count 3.37 M/mm3 (4.6-6.20); White Blood Count 8.5 K/mm3 (4.5-10.0)
[2025-05-21 06:45] LABS: Alanine Aminotransferase 25 U/L (6-50); Albumin Level 3.9 g/dL (3.5-5.1); Alkaline Phosphatase 79 U/L (38-126); Anion Gap 7 mmol/L (4-12); Aspartate Amino Transferase 36 U/L (17-59); Bilirubin,Total 0.7 mg/dL (0.2-1.3); Blood Urea Nitrogen 28 mg/dL (9-20); Calcium 9.6 mg/dL (8.4-10.2); Carbon Dioxide 25 mmol/L (22-30); Chloride 105 mmol/L (98-107); Estimated CRCL calculation 45 ml/min; Estimated Glomerular Filt Rate 47; Glucose 120 mg/dL (65-110); Potassium 4.7 mmol/L (3.4-5.0); Sodium 137 mmol/L (137-145); Total Protein 6.5 g/dL (6.3-8.2)
--- NOTE | 2025-05-21 08:08 | P.PNIM_ITS ---
Progress Note: A&P Assessment and Plan (1) Fall: Code(s): W19.XXXA - Unspecified fall, initial encounter Status: Acute Assessment and Plan: Sustained fall after slipping off of pallets at work Denies head strike, LOC or neck pain Denies dizziness/lightheadedness prior to fall * Hip/pelvis XR 05/18: left femoral intertrochanteric fracture. Repeat XR following operation: Anatomic alignment of left femoral intertrochanteric fracture status post internal fixation. * Chest XR 05/19: Bilateral interstitial infiltrates. Differential diagnosis includes pulmonary edema, atypical pneumonia and chronic interstitial lung disease * Fall precautions * pt/ot recommending acute inpatient rehab plan for KR[facility] pending insurance approval * See plan below (2) Closed intertrochanteric fracture of left femur: Code(s): S72.142A - Displaced intertrochanteric fracture of left femur, initial encounter for closed fracture Status: Acute Assessment and Plan: Hip/pelvis XR 05/18: left femoral intertrochanteric fracture. Repeat XR following operation: Anatomic alignment of left femoral intertrochanteric fracture status post internal fixation. * Louise catheter to be removed on 05/20, voiding trial successful * Fall precautions * Pain control with [place] 5-325 mg q4H PRN * Zofran 4 mg IV push p.r.n. nausea q.4 hours * PT/OT eval and treat weight bearing as tolerated per ortho recommendations Recommending acute inpatient rehab * DVT ppx with patients home asprin and xarelto, confirmed okay to resume per ortho Dr. Guzman * Bowel regimen: senna and miralax * Consult orthopedics s/p left hip IM obed fixation and intra operative fluoroscopy on 05/[address] Guzman Pain well controlled. Continues to work with therapy. Care coordination following for placement. (3) Heart failure with reduced ejection fraction: Code(s): I50.20 - Unspecified systolic (congestive) heart failure Status: Acute Assessment and Plan: Spoke with RN at Dr. Gates office who confirmed patient has hx HF with reduced EF. Previously EF 40%, however most recent EF 50% - BNP slightly elevated at 859 - Chest XR: Bilateral interstitial infiltrates. Differential diagnosis includes pulmonary edema, atypical pneumonia and chronic interstitial lung disease. Given lasix 40 mg IV x1 for pulmonary edema likely secondary to volume overload given the IV fluids on admission Patient denies shortness of breath and cough, WBC WNL despite no antibiotic intervention. Low suspicion for pneumonia. - Echo: LVEF 55-60% with grade I diastolic dysfunction - Continue carvedilol 25 mg BID and losartan 100 mg daily - Monitor vital signs, I&Os, BUN/creatinine, daily weights, neuro status and patient is a fall risk - Monitor serum electrolytes, Keep serum Potassium>4 and serum Magnesium>2 and CBC (4) Renal failure: Code(s): N19 - Unspecified kidney failure Status: Acute Assessment and Plan: BUN/Cr 27/2.13 with GFR 31 on admission Patient states history of CKD stage III, we have no comparison data in EMR. * Creatinine and BUN slightly improved on am labs at 26/1.69 with GFR 41 * Continue to trend renal function with daily labs * Louise catheter placed in the setting of acute fracture and decreased Mobility, discontinued. Voiding trial sucessful. * Monitor I/O * Renally dose medications * Avoid neprhotoxic medications (5) CAD (coronary artery disease): Code(s): I25.10 - Atherosclerotic heart disease of [place] coronary artery without angina pectoris Status: Acute Assessment and Plan: Chronic, continue atorvastatin 80 mg daily, carvedilol 25 mg BID, aspirin 81 mg daily and Xarelto 2.5 mg BID No prior stents Followed by Dr. Joshua dawson clay modeler [facility] (6) Hypertension: Code(s): I10 - Essential (primary) hypertension Status: Acute Assessment and Plan: Chronic, continue home medications - losartan 100 mg daily - carvedilol 25 mg BID - blood pressures remain stable, continue to monitor (7) PAD (peripheral artery disease): Code(s): I73.9 - Peripheral vascular disease, unspecified Status: Acute Assessment and Plan: Chronic, continue atorvastatin 80 mg daily, carvedilol 25 mg BID, aspirin 81 mg daily and Xarelto 2.5 mg BID Followed by Dr. Joshua dawson clay modeler [facility] Time Spent With Patient Time with patient: 25 - 35 minutes Subjective Date/time seen: 05/21/25 08:08 Interval history: 69-year-old male patient with cardiac history who presents to the hospital following a fall after standing on a [place] when he slipped landing onto the left hip. Patient denies any head injury or loss of consciousness and no neck injury. Patient is pleasant sitting up comfortably in bed family at bedside. He states that pain is well controlled on the current regimen. He continues to work with therapy who is recommending acute inpatient rehab. Care coordination continues to follow implant for patient to discharge to [facility] in-situ when insurance approval is completed. Patient has no complaints denying chest pain, shortness a breath, palpitations, nausea/vomiting, abdominal pain. Patient still is on had a bowel movement since surgery but is passing flatus. Started on a bowel regimen. Review of Systems Review of Systems: All systems reviewed & are unremarkable except as noted in HPI and below Exam Narrative: AF HR 80 RR 20 SPO2 93 BP 121/57 General: male in no acute respiratory distress who is nontoxic appearing, lying in bed. HEENT: Normocephalic. Atraumatic. Extraocular movement intact. Sclera clear and anicteric. No facial asymmetry. Chest: Lungs are clear to auscultation bilaterally. No wheezes or crackles. CV: Heart was regular rate and rhythm. Abd: Abdomen was soft. Nontender. Nondistended. Positive bowel sounds. Ext: No clubbing, cyanosis, or edema. DP pulses bilaterally. Slight swelling to the left hip, improving. Dressing that is clean/dry/intact. Neuro: Patient is alert and oriented x3. Speech is clear. Objective Data Vital Signs Vital Signs: Vital Signs - 24 hr 05/20/25 10:12 05/20/25 12:00 05/20/25 16:00 Temperature 96.9 F L 97.7 F Pulse Rate 75 76 Respiratory Rate 16 16 Blood Pressure 147/73 H 160/75 H Pulse Oximetry 96 96 Oxygen Delivery Room Air Fraction of Inspired Oxygen 05/20/25 16:27 05/20/25 20:00 05/20/25 20:11 Temperature 97.8 F Pulse Rate 76 67 Respiratory Rate 18 Blood Pressure 162/66 H Pulse Oximetry 94 Oxygen Delivery Room Air Fraction of Inspired Oxygen 05/20/25 21:19 05/21/25 00:00 05/21/25 04:00 Temperature 97.9 F 97.7 F Pulse Rate 95 68 78 Respiratory Rate 20 16 20 Blood Pressure 125/65 121/57 L Pulse Oximetry 95 94 93 Oxygen Delivery Room Air Fraction of Inspired Oxygen 21 Intake/Output Intake/Output: Intake & Output 0805/19/25 05/20/25 05/21/25 23:59 23:59 23:59 23:59 Intake Total 1940 1220 200 Output Total 4191 8265 300 Balance -570 -455 -100 Meds/Results Medications: Active Medications Generic Name Dose Route Start Last Admin Trade Name Freq PRN Reason Stop Dose Admin Hydrocodone Bitart/Acetaminophen 1 tab 05/20/25 08:10 05/20/25 16:30 Hydrocodone/Acetaminophen (*Crx) 5-325 Mg Tablet PO 1 tab Q4H PRN Administration Pain Rated 4-6 Aspirin 81 mg 05/21/25 09:00 Aspirin 81 Mg Enteric Tablet PO QAM [facility] Atorvastatin Calcium 80 mg 05/21/25 09:00 Atorvastatin 40 Mg Tablet PO DAILY [facility] Carvedilol 25 mg 05/20/25 17:00 05/20/25 16:27 Carvedilol 25 Mg Tablet PO 25 mg BIDWM VEE Administration Famotidine 20 mg 05/21/25 09:00 Famotidine 20 Mg Tablet PO QAM [facility] Hydralazine HCl 10 mg 05/18/25 21:52 Hydralazine Hcl 20 Mg/Ml Vial IV PUSH Q8H PRN Blood Pressure - High Hydromorphone HCl 1 mg 05/18/25 21:52 05/20/25 08:29 Hydromorphone Hcl Inj (*Crx) 1 Mg/Ml Syr IV PUSH 1 mg Q3HR PRN Administration pain 7-10 Sodium Chloride 1,000 mls @ 100 mls/hr 05/18/25 21:55 05/19/25 12:51 Normal Saline Iv IV CONT 100 mls/hr .Q10H VEE Administration Losartan Potassium 100 mg 05/21/25 09:00 Losartan Potassium 100 Mg Tablet PO DAILY VEE Ondansetron HCl 4 mg 05/18/25 21:52 Ondansetron Inj 4 Mg/2 Ml Vial IV PUSH Q6HR PRN nausea Perflutren Lipid Microsphere 0 ml 05/18/25 21:52 Perflutren Lipid Microspheres 1.5 Ml Vial Diluted To 10 Ml Total Volume IV PUSH 05/21/25 21:53 ONCE PRN adequate visualization Protocol Rivaroxaban 2.5 mg 05/20/25 21:00 05/20/25 20:11 Rivaroxaban 2.5 Mg Tablet PO 2.5 mg Q12HR VEE Administration Radiology Results: ITS Impressions Chest X-Ray 05/19/25 07:30 Impression: 1: Bilateral interstitial infiltrates. Differential diagnosis includes pulmonary edema, atypical pneumonia and chronic interstitial lung disease. Fluoroscopy 05/19/25 09:44 IMPRESSION: Fluoroscopy used during intraoperative fixation of left hip fracture. Hip/Pelvis X-Ray 05/19/25 11:01 Impression: 1: Anatomic alignment of left femoral intertrochanteric fracture status post internal fixation. Labs Labs: Laboratory Results - last 24 hr 05/20/25 05/21/25 08:12 05:34 WBC 10.1 H 8.5 RBC 3.52 L 3.37 L Hgb 11.6 L 11.0 L Hct 35.0 L 33.2 L MCV 99.4 98.5 MCH 33.0 32.6 MCHC 33.1 33.1 RDW 12.3 12.5 Plt Count 171 167 MPV 9.3 9.8 Sodium 137 137 Potassium 4.4 4.7 Chloride 107 105 Carbon Dioxide 20 L 25 Anion Gap 10 7 BUN 26 H 28 H Creatinine 1.69 H 1.49 H Estim Creat Clear Calc 40 45 Estimated GFR 41 L 47 L Glucose 144 H 120 H Calcium 9.5 9.6 Total Bilirubin 0.6 0.7 AST 30 36 ALT 26 25 Alkaline Phosphatase 80 79 NT-Pro-B Natriuret Pep 859 H Total Protein 6.6 6.5 Albumin 4.1 3.9 Quality VTE Prophylaxis VTE prophylaxis: mechanical ordered
[2025-05-21 08:54] VITALS: PULSE 80
[2025-05-21] MEDS: ATORVASTATIN 40 MG TABLET 80 MG PO (08:54)
[2025-05-21] MEDS: RIVAROXABAN 2.5 MG TABLET PO ×2 (08:54→20:22)
[2025-05-21] MEDS: LOSARTAN POTASSIUM 100 MG TABLET PO (08:55)
[2025-05-21] MEDS: ASPIRIN 81 MG ENTERIC TABLET PO (08:55)
[2025-05-21] MEDS: FAMOTIDINE 20 MG TABLET PO (08:55)
[2025-05-21] MEDS: HYDROcodone/acetaminophen (*CRX) 5-325 MG TABLET 1 TAB PO (09:00)
[2025-05-21 13:52] VITALS: BP 98/62; PULSE 72; RESP 18; TEMP 36.2; O2SAT 94
[2025-05-21] MEDS: SENNA/DOCUSATE SODIUM TABLET 1 TAB PO (20:22)
[2025-05-21 21:18] VITALS: BP 127/56; PULSE 76; RESP 20; TEMP 36.6; O2SAT 97
[2025-05-22] MEDS: HYDROcodone/acetaminophen (*CRX) 5-325 MG TABLET 1 TAB PO (03:02)
[2025-05-22 05:32] VITALS: BP 105/60; PULSE 66; RESP 20; TEMP 36.6; O2SAT 95
[2025-05-22 06:33] LABS: Hematocrit 31.2 % (42.0-52.0); Hemoglobin 10.3 g/dL (14.0-18.0); Mean Corpuscular HGB Conc 33.0 g/dl (32-36); Mean Corpuscular Hemoglobin 32.9 pg (26-34); Mean Corpuscular Volume 99.7 fl (80-100); Platelet Count Result 168 k/mm3 (150-375); Red Blood Count 3.13 M/mm3 (4.6-6.20); White Blood Count 6.8 K/mm3 (4.5-10.0)
[2025-05-22 07:01] LABS: Alanine Aminotransferase 26 U/L (6-50); Albumin Level 3.8 g/dL (3.5-5.1); Alkaline Phosphatase 80 U/L (38-126); Anion Gap 7 mmol/L (4-12); Aspartate Amino Transferase 34 U/L (17-59); Bilirubin,Total 0.9 mg/dL (0.2-1.3); Blood Urea Nitrogen 35 mg/dL (9-20); Calcium 9.3 mg/dL (8.4-10.2); Carbon Dioxide 25 mmol/L (22-30); Chloride 104 mmol/L (98-107); Estimated CRCL calculation 37 ml/min; Estimated Glomerular Filt Rate 37; Glucose 109 mg/dL (65-110); Potassium 4.5 mmol/L (3.4-5.0); Sodium 136 mmol/L (137-145); Total Protein 6.3 g/dL (6.3-8.2)
[2025-05-22] MEDS: ATORVASTATIN 40 MG TABLET 80 MG PO (09:34)
[2025-05-22 09:35] VITALS: PULSE 73
[2025-05-22] MEDS: ASPIRIN 81 MG ENTERIC TABLET PO (09:35)
[2025-05-22] MEDS: RIVAROXABAN 2.5 MG TABLET PO (09:35)
[2025-05-22] MEDS: LOSARTAN POTASSIUM 100 MG TABLET PO (09:35)
[2025-05-22] MEDS: FAMOTIDINE 20 MG TABLET PO (09:35)
[2025-05-22 09:38] VITALS: BP 114/66; PULSE 73; O2SAT 96
--- NOTE | 2025-05-22 10:27 | P.DS_ITS ---
DS: Admitting Diagnosis Discharge Date 05/22 Admitting Diagnosis fall DS: Discharge Diagnosis Discharge Diagnosis (1) Fall: Code(s): W19.XXXA - Unspecified fall, initial encounter Status: Acute (2) Closed intertrochanteric fracture of left femur: Code(s): S72.142A - Displaced intertrochanteric fracture of left femur, initial encounter for closed fracture Status: Acute (3) Heart failure with reduced ejection fraction: Code(s): I50.20 - Unspecified systolic (congestive) heart failure Status: Acute (4) Renal failure: Code(s): N19 - Unspecified kidney failure Status: Acute (5) CAD (coronary artery disease): Code(s): I25.10 - Atherosclerotic heart disease of [place] coronary artery without angina pectoris Status: Acute (6) Hypertension: Code(s): I10 - Essential (primary) hypertension Status: Acute (7) PAD (peripheral artery disease): Code(s): I73.9 - Peripheral vascular disease, unspecified Status: Acute DS: Summary Hospital Course Hospital Course: 69-year-old male patient with cardiac history who presents to the hospital following a fall after standing on a [place] when he slipped landing onto the left hip. Patient denies any head injury or loss of consciousness and no neck injury. Several issues were addressed: # fall # Closed intertrochanteric fracture of left femur Denies head strike, LOC or neck pain Denies dizziness/lightheadedness prior to fall * Hip/pelvis XR 05/18: left femoral intertrochanteric fracture. Repeat XR following operation: Anatomic alignment of left femoral intertrochanteric fr acture status post internal fixation. * Chest XR 05/19: Bilateral interstitial infiltrates. Differential diagnosis includes pulmonary edema, atypical pneumonia and chronic interstitial lung disease * pt/ot recommending acute inpatient rehab plan for [facility] pending insurance approval * Hip/pelvis XR 05/18: left femoral intertrochanteric fracture. Repeat XR following operation: Anatomic alignment of left femoral intertrochanteric fracture status post internal fixation. * Louise catheter to be removed on 05/20, voiding trial successful * Pain control with [place] 5-325 mg q4H PRN * Zofran 4 mg IV push p.r.n. nausea q.4 hours * PT/OT eval and treat weight bearing as tolerated per ortho recommendations Recommending acute inpatient rehab * DVT ppx with patients home asprin and xarelto, confirmed okay to resume per ortho Dr. Guzman * Bowel regimen: senna and miralax Pt had BM and ready to be discharged to [facility] # Heart failure with reduced ejection fraction: Spoke with RN at Dr. Gates office who confirmed patient has hx HF with reduced EF. Previously EF 40%, however most recent EF 50% - BNP slightly elevated at 859 - Chest XR: Bilateral interstitial infiltrates. Differential diagnosis includes pulmonary edema, atypical pneumonia and chronic interstitial lung disease. Given lasix 40 mg IV x1 for pulmonary edema likely secondary to volume overload given the IV fluids on admission Patient denies shortness of breath and cough, WBC WNL despite no antibiotic intervention. Low suspicion for pneumonia. - Echo: LVEF 55-60% with grade I diastolic dysfunction - Continue carvedilol 25 mg BID and losartan 100 mg daily - Monitor vital signs, I&Os, BUN/creatinine, daily weights, neuro status and patient is a fall risk - Monitor serum electrolytes, Keep serum Potassium>4 and serum Magnesium>2 and CBC -stable # renal failure: BUN/Cr 27/2.13 with GFR 31 on admission Patient states history of CKD stage III, we have no comparison data in EMR. * Creatinine and BUN slightly improved on am labs at 26/1.69 with GFR 41 * Continue to trend renal function with daily labs * Louise catheter placed in the setting of acute fracture and decreased Mobility, discontinued. Voiding trial sucessful. * Monitor I/O * Renally dose medications * Avoid nephrotoxic medications # CAD (coronary artery disease): Chronic, continue atorvastatin 80 mg daily, carvedilol 25 mg BID, aspirin 81 mg daily and Xarelto 2.5 mg BID No prior stents Followed by Dr. Joshua [facility] # Hypertension Chronic, continue home medications - losartan 100 mg daily - carvedilol 25 mg BID - blood pressures remain stable, continue to monitor # PAD (peripheral artery disease): Chronic, continue atorvastatin 80 mg daily, carvedilol 25 mg BID, aspirin 81 mg daily and Xarelto 2.5 mg BID Followed by Dr. Joshua [facility] Time Spent with Patient Time attestation: Total time spent providing and/or coordinating discharge services: Exam Narrative: General: male in no acute respiratory distress who is nontoxic appearing, lying in bed. HEENT: Normocephalic. Atraumatic. Extraocular movement intact. Sclera clear and anicteric. No facial asymmetry. Chest: Lungs are clear to auscultation bilaterally. No wheezes or crackles. CV: Heart was regular rate and rhythm. Abd: Abdomen was soft. Nontender. Nondistended. Positive bowel sounds. Ext: No clubbing, cyanosis, or edema. DP pulses bilaterally. Slight swelling to the left hip, improving. Dressing that is clean/dry/intact. Neuro: Patient is alert and oriented x3. Speech is clear. Const: General: no acute distress and uncomfortable Other: Male patient lying supine on stretcher at this time, appearing uncomfortable with any movements. HENMT: Face/Nose/Sinus: Normal nares present Mouth: Yes moist mucous membranes Eyes: General: appearance normal, both eyes and all related structures Sclera: sclerae normal EOM: EOMs intact bilaterally Neck: Neck: supple and no JVD Lymphatic: lymphadenopathy not noted Chest: Other: Nontender Resp: Effort & Inspection: normal respiratory effort Auscultation: clear to auscultation bilaterally Cardio: Rate: regular rate Rhythm: regular rhythm Heart sounds: no gallops, no murmurs and no rubs GI: Auscultation: normal bowel sounds Back/Spine/Pelvis: Pelvis: Other pelvic findings (Tenderness over the left greater trochanter. No crepitus.) Coccyx: Other pelvic findings (Tenderness over the left greater trochanter. No crepitus.) Skin: General skin exam: normal color, No lesion and No rashes Lesions: no lesions noted Rashes: no rashes noted Wounds: no wounds Neuro: Speech: normal speech Motor exam (neuro): Abnormal motor strength present (Left hip secondary to pain) Sensory Exam: normal sensation Extrem: Other: Left hip tenderness to palpation. Decreased active range of motion. Psych: Mental Status: mental status grossly normal Affect: normal affect Other: Poor historian of health DS: Data Data Completed and Pending Completed studies during hospitalization: xray, hip/pelvis xray Labs on day of discharge: Labs from last 24 hours 05/22/25 05:36 WBC 6.8 RBC 3.13 L Hgb 10.3 L Hct 31.2 L MCV 99.7 MCH 32.9 MCHC 33.0 RDW 12.5 Plt Count 168 MPV 9.8 Sodium 136 L Potassium 4.5 Chloride 104 Carbon Dioxide 25 Anion Gap 7 BUN 35 H Creatinine 1.83 H Estim Creat Clear Calc 37 Estimated GFR 37 L Glucose 109 Calcium 9.3 Total Bilirubin 0.9 AST 34 ALT 26 Alkaline Phosphatase 80 Total Protein 6.3 Albumin 3.8 Discharge Plan Discharge Attending physician on discharge: Hai Allison Consulting providers: Flaco Guzman; Paz Díaz Discharging Clinician: Holly Pandey Patient Disposition: [facility] Activity: january shower Diet: heart healthy Patient Instructions: Rivaroxaban (By mouth) Patient Language: Yoruba Discharge Medications: New hydrocodone-acetaminophen 5-325 mg Tablet 1 tablet PO Q4H PRN (Reason: Pain Rated 4-6) Qty: 12 0RF Continued bupropion HCl 150 mg tablet sustained-release 12 hr 150 mg PO BID atorvastatin 80 mg tablet 80 mg PO DAILY carvedilol 25 mg tablet 25 mg PO BIDWMEAL famotidine 40 mg tablet 40 mg PO BID losartan 100 mg tablet 100 mg PO DAILY tadalafil 20 mg tablet 20 mg PO DAILY Rx Instructions: 1/2 tablet daily rivaroxaban 2.5 mg tablet 2.5 mg PO BID Date of admission: 05/18/25 21:36 Primary Care Provider: PHYSICIAN NOT ON STAFF,NONSTAFF Admitting Provider: Hai Allison Attending physician on admission: Hai Allison Condition: Stable Quality VTE Prophylaxis VTE prophylaxis: mechanical ordered Hospitalist MIPS Heart Failure (Exclusion) Patient has history of Heart Transplant or Left Ventricular Assistive Device?: No IF YES, STOP HERE Heart Failure (Qualifier) Patient has current or prior documentation of LVEF less than or equal to 40%, or mod/servere depressed LVSF?: No IF NO, STOP HERE
== END 2025-05-22 13:00 | DRG 481 ==
LOC: ANHED 21:42 → ANH3MEDSUR 22:04
PROVIDERS: Nurse Practitioner Adult Health; Orthopaedic Surgery; Student in an Organized Health Care Education/Training Program; Admitting Provider General Practice; Emergency Provider Emergency Medicine; Visit Provider Nurse Practitioner
PROC: 0QS736Z Reposition Left Upper Femur with Intramedullary Internal Fixation Device, Percutaneous Approach (ICD-10-PCS; CPT 27245; principal; 2025-05-19 08:30)
DX: S72.142A Displaced intertrochanteric fracture of left femur, initial encounter for closed fracture (principal); I13.0 Hypertensive heart and chronic kidney disease with heart failure and stage 1 through stage 4 chronic kidney disease, or unspecified chronic kidney disease; N17.9 Acute kidney failure, unspecified; I50.32 Chronic diastolic (congestive) heart failure; W17.89XA Other fall from one level to another, initial encounter; I25.10 Atherosclerotic heart disease of native coronary artery without angina pectoris; N18.30 Chronic kidney disease, stage 3 unspecified; I73.9 Peripheral vascular disease, unspecified; Z87.891 Personal history of nicotine dependence; Z79.01 Long term (current) use of anticoagulants; Z79.82 Long term (current) use of aspirin; Z90.49 Acquired absence of other specified parts of digestive tract
CPT/HCPCS: 36415; 71045; 73502; 80053; 83735; 83880; 85025; 85027; 85610; 85730; 86850; 86900; 86901; 93005; 93306; 96374; 96375; 96376; 97110; 97116; 97161; 97166; 97530; 97535; 99199; 99285; J0690; A9270; C1713; C1769; J1100; J1171; J2003; J2004; J2270; J2405; J2704; J7030; J7120